=== PATIENT | female | born 1955 | race Caucasian/White ===

== ENCOUNTER 2018-10-31 08:00 | Outpatient (CLI) | payer MEDICAID, OTHER ==
[2018-10-31 19:23] LABS: CALCIUM 9.7 mg/dL (8.5-10.3); CARBON DIOXIDE - CO2 27 mmol/L (21-32); CHLORIDE 98 mmol/L (101-111); GLUCOSE 244 mg/dL (70-100); SODIUM 135 mmol/L (135-145)
[2018-10-31 19:44] LABS: ALBUMIN 4.4 g/dL (3.2-5.5); ALBUMIN/GLOBULIN RATIO 1.3 (1.0-2.2); ALKALINE PHOSPHATASE 71 IU/L (42-121); ALT ALANINE AMINOTRANSFERASE 69 IU/L (10-60); AST ASPARTATE AMINOTRANSFERASE 86 IU/L (10-42); BILIRUBIN,TOTAL 0.8 mg/dL (0.2-1.0); BUN - BLOOD UREA NITROGEN 17 mg/dL (6-20); CHOL/HDL RATIO 3.8 (<4.4); CHOLESTEROL 218 mg/dL; CREATININE 0.8 mg/dL (0.4-1.0); GFR - MDRD 72 (>89); HDL CHOLESTEROL 58 mg/dL; LDL CHOLESTEROL,CALCULATED 124 mg/dL; LDL/HDL RATIO 2.1 (<4.4); TOTAL PROTEIN 7.9 g/dL (6.7-8.2); VLDL CHOLESTEROL 36 mg/dL
[2018-10-31 19:55] LABS: BASOPHILS # (AUTO) 0.1 10^3/uL (0.0-0.1); BASOPHILS % (AUTO) 0.9 %; EOSINOPHILS # (AUTO) 0.1 10^3/uL (0.0-0.7); EOSINOPHILS % (AUTO) 1.6 %; HGB - HEMOGLOBIN 13.8 g/dL (12.0-16.0); LYMPHOCYTES # (AUTO) 1.5 10^3/uL (1.5-3.5); LYMPHOCYTES % (AUTO) 22.4 %; MEAN CORPUSCULAR HGB CONC 33.8 g/dL (32.0-36.0); MEAN CORPUSCULAR VOLUME 97.6 fL (81.0-99.0); MEAN PLATELET VOLUME 9.3 fL (7.9-10.8); MONOCYTES # (AUTO) 0.5 10^3/uL (0.0-1.0); MONOCYTES % (AUTO) 7.3 %; NEUTROPHILS # (AUTO) 4.6 10^3/uL (1.5-6.6); NEUTROPHILS % (AUTO) 67.8 %; PLT - PLATELET COUNT 150 10^3/uL (130-450); RED BLOOD COUNT 4.18 10^6/uL (4.20-5.40); RED CELL DISTRIBUTION WIDTH 13.4 % (12.0-15.0); WHITE BLOOD COUNT 6.8 x10^3/uL (4.8-10.8)
[2018-10-31 21:47] LABS: HB2 TOTAL 15.1 g/dL; HEMOGLOBIN A1C 1.18 g/dL; HEMOGLOBIN A1C % 9.3 % (4.6-6.2)
== END 2018-10-31 23:59 | disposition home or self-care (01) ==
LOC: LAB.WCP 08:00
PROVIDERS: ATTEND Physician Assistant
DX: E11.9 Type 2 diabetes mellitus without complications (principal); E78.5 Hyperlipidemia, unspecified; R53.83 Other fatigue
CPT/HCPCS: 36415; 80053; 80061; 82043; 83036; 83721; 84443; 85025

== ENCOUNTER 2018-12-13 14:58 | Outpatient (CLI) | payer MEDICAID | END 2018-12-13 14:59 | disposition home or self-care (01) | LOC: SC 14:58 | PROVIDERS: ATTEND Internal Medicine Pulmonary Disease | DX: G47.10 Hypersomnia, unspecified (principal); R06.81 Apnea, not elsewhere classified; R06.83 Snoring; G47.8 Other sleep disorders | CPT/HCPCS: 99203; 99212 ==

== ENCOUNTER 2019-01-13 20:55 | Outpatient (CLI) | payer MEDICAID | END 2019-01-13 20:56 | disposition home or self-care (01) | LOC: SC 20:55 | PROVIDERS: ATTEND Internal Medicine Pulmonary Disease | DX: G47.33 Obstructive sleep apnea (adult) (pediatric) (principal); G47.61 Periodic limb movement disorder; E66.9 Obesity, unspecified; Z68.38 Body mass index [BMI] 38.0-38.9, adult | CPT/HCPCS: 95810 ==

== ENCOUNTER 2019-01-18 12:56 | Outpatient (CLI) | payer MEDICAID | END 2019-01-18 12:57 | disposition home or self-care (01) | LOC: SC 12:56 | PROVIDERS: ATTEND Nurse Practitioner Family | DX: G47.33 Obstructive sleep apnea (adult) (pediatric) (principal); G47.61 Periodic limb movement disorder | CPT/HCPCS: 99212; 99214 ==

== ENCOUNTER 2019-02-01 09:08 | Outpatient (CLI) | payer MEDICAID ==
[2019-02-01 12:35] LABS: ALBUMIN 4.1 g/dL (3.2-5.5); ALBUMIN/GLOBULIN RATIO 1.2 (1.0-2.2); BILIRUBIN,TOTAL 0.7 mg/dL (0.2-1.0); CALCIUM 9.4 mg/dL (8.5-10.3); CREATININE 0.9 mg/dL (0.4-1.0); TOTAL PROTEIN 7.4 g/dL (6.7-8.2)
[2019-02-01 12:42] LABS: BASOPHILS % (AUTO) 0.7 %; EOSINOPHILS # (AUTO) 0.1 10^3/uL (0.0-0.7); EOSINOPHILS % (AUTO) 2.1 %; HGB - HEMOGLOBIN 12.4 g/dL (12.0-16.0); LYMPHOCYTES # (AUTO) 1.7 10^3/uL (1.5-3.5); LYMPHOCYTES % (AUTO) 24.8 %; MEAN CORPUSCULAR HEMOGLOBIN 33.1 pg (27.0-31.0); MEAN CORPUSCULAR HGB CONC 34.4 g/dL (32.0-36.0); MEAN CORPUSCULAR VOLUME 96.1 fL (81.0-99.0); MEAN PLATELET VOLUME 9.3 fL (7.9-10.8); MONOCYTES # (AUTO) 0.6 10^3/uL (0.0-1.0); MONOCYTES % (AUTO) 8.7 %; NEUTROPHILS # (AUTO) 4.3 10^3/uL (1.5-6.6); NEUTROPHILS % (AUTO) 63.7 %; PLT - PLATELET COUNT 164 10^3/uL (130-450); RED BLOOD COUNT 3.75 10^6/uL (4.20-5.40); RED CELL DISTRIBUTION WIDTH 13.3 % (12.0-15.0); WHITE BLOOD COUNT 6.7 x10^3/uL (4.8-10.8)
[2019-02-01 12:52] LABS: HEMOGLOBIN A1C 0.54 g/dL
== END 2019-02-01 09:09 | disposition home or self-care (01) ==
LOC: LAB.WCP 09:08
PROVIDERS: ATTEND Physician Assistant
DX: E11.9 Type 2 diabetes mellitus without complications (principal)
CPT/HCPCS: 36415; 80053; 83036; 85025

== ENCOUNTER 2019-04-04 13:38 | Outpatient (CLI) | payer MEDICAID ==
[2019-04-04 15:17] VITALS: BP 104/60
--- NOTE | 2019-04-04 15:17 | SLEEP CARE CONSULTATION ---
Information from patient questionnaire entered by Clarisa Agarwal. I have reviewed and concur with the information entered by Clarisa Agarwal. This document represents the service I personally performed and the decisions made by me, Aster Ness, RN, MSN, FINISHING MANAGER. History of Present Illness Previous diagnosis: Severe, Obstructive Sleep Apnea-Hypopnea Syndrome AHI: 44.0 Reason for CPAP/BiPAP follow up: first compliance Equipment obtained from: [facility] Mask style: Nasal Mask brand: Respironics (patient asked to have style changed before 30 days but it was refused as her AHI was lower.) Backup mask available: No Last cushion change: none since set up HPI additional information: Changes since last seen is stenosis and disc abnormality C6 noted on MRI and gabapentin ordered until could see referral to neurologist. She also reports that it took a while to get set up and when called [facility] she was told that it was due to delay in authorization of insurance. It was over a month before someone called back. She was set up a day after informed them she would go elsewhere for her CPAP. CPAP Compliance Data - Data Reviewed with Patient Average duration of nightly device use: 7H 39M Compliance rate %: 96.7 Current pressure setting (cmH2O): 4-15 Humidity settin Heated hose settin Average residual AHI: 14.3 Central apnea: 1.3 Obstructive apnea: 7.2 Hypopnea: 5.8 Average large leak: 52 minutes and increased the past 2 weeks with up to 50% of the last night Subjective Missed days of use due to: reports: other (fell asleep without it after long travel day.) Patient concerns: reports: air blowing in eyes (She is adjusting mask 5-6 times a night even after mask adjustment. ), mask leak noise, dry mouth, nose, throat (wakes with dry mouth most days but not dry nose or throat. ). denies: aerophagia, mask discomfort, condensation in mask/hose, nasal congestion, epistaxis Observed to snore while using device: No (sleeps alone) On therapy, patient: reports: sleeping better (she was sleeping better until waking more with mask leaks. ), awakening more refreshed (yes initially, not now. ), being more awake and alert during the day, more rested overall (not as rested or alert for past 2 weeks with increase in mask leaks noted on compliance report. ), other. denies: drowsiness while driving Initial [place] Sleepiness Scale score: 18 Current [place] Sleepiness Scale score: 15 Allergies and Home Medications Home medication list reviewed: Yes Allergy and home medication list: Added Gabapentin 300mg 3 times day started recently due to pinched nerve in neck. Medication Name (generic/name brand) Strength & Dosage Fluoxetine HCL 20mg cap one-two daily ( SAD and PTSD) Metformin HCL 1000mg tab one twice daily Januvia (Sitagliptin Phosphate) 100mg tab one daily Actos (Pioglitazone HCL) 15mg tab one daily Victoza 18mg/3ml (1.8) Injector Pen Inject 1.8mg daily Aspirin delayed release 81mg tab one daily Flaxseed Oil 1400mg cap one daily Black Cohosh 540mg cap one daily Vitamin D3 5000IU cap one daily Hawthron Harmon 565mg cap one daily Milk Thistle 1000mg cap one daily Gabapentin 300mg 3 times a day Allergy List Darvon Statins Glipizide Review of Systems Review of systems same as previous: Yes Respiratory: reports: shortness of breath, sputum production Gastrointestinal: reports: diarrhea Urinary: reports: incontinence, frequency, urgency Neurological: reports: headaches Psychiatric: reports: depression, claustrophobia Ear/Nose/Throat: reports: nasal congestion, sinus problems Endocrine: reports: sluggishness, too hot or cold, excessive thirst Musculoskeletal: reports: joint pain, neck pain, back pain, muscle pain or cramping Immunologic: reports: sneezing, rash, itching, allergies to food or environment (seasonal allergies) Physical Exam Blood Pressure: 104/60 Cuff size: long Heart Rate: 71 O2 Saturation: 98 Height: 4 ft 11.75 in Weight (kg): 89.448 kg Body Mass Index: 38.8 BMI Classification: Class 2 Impression and Plan 1. Obstructive Sleep Apnea-Hypopnea Syndrome, severe, with good treatment compliance but has elevated residual AHI . On CPAP therapy, there was improved sleep quality and she was more rested overall until increase in mask leaks. Since the mask leaks are waking her even with adjustment of mask and she is not able to get a new cushion only every 3 months, I fitted her with a medium D reamwear full face mask. Her oral dryness could be from opening mouth in sleep and this could reduce oral dryness. In addition, I will have her adjust her humidity higher to 4 and heated hose lower to 1 to allow more moisture. She is to adjust further as needed. I will also change her autoCPAP pressure to [id number] to reduce residual AHI. She is to call me if the pressure change is uncomfortable. She has also gained weight and advised how continued weight gain could increase her CPAP requirements. She is advised to lose weight. Symptoms to report for pressure adjustment discussed. Patient's apnea severity and rationale for treatment to reduce apnea, improve sleep quality and reduce cardiovascular and cerebrovascular events was reviewed. I also reviewed the benefit of consistent device use of CPAP for diabetes, depression/anxiety. Plan Change auto CPAP pressure at 10-16 cm H2O. Notify me if snoring with the mask or feeling that the pressure is too much or too little. Attempt to lose weight. Return for follow-up in 2 months, or sooner if concerns arise. I spent 100% of this 55 minute visit face to face with the patient with greater than 50% of this was spent time counseling the patient and coordination of care.
== END 2019-04-04 13:39 | disposition home or self-care (01) ==
LOC: SC 13:38
PROVIDERS: ATTEND Nurse Practitioner Family
DX: G47.33 Obstructive sleep apnea (adult) (pediatric) (principal)
CPT/HCPCS: 99212; 99215

== ENCOUNTER 2019-05-03 08:00 | Outpatient (CLI) | payer MEDICAID ==
[2019-05-03 18:54] LABS: BASOPHILS % (AUTO) 0.6 %; EOSINOPHILS # (AUTO) 0.1 10^3/uL (0.0-0.7); EOSINOPHILS % (AUTO) 1.6 %; HGB - HEMOGLOBIN 11.8 g/dL (12.0-16.0); LYMPHOCYTES # (AUTO) 1.8 10^3/uL (1.5-3.5); LYMPHOCYTES % (AUTO) 26.3 %; MEAN CORPUSCULAR HEMOGLOBIN 32.5 pg (27.0-31.0); MEAN CORPUSCULAR HGB CONC 32.8 g/dL (32.0-36.0); MEAN CORPUSCULAR VOLUME 99.2 fL (81.0-99.0); MEAN PLATELET VOLUME 10.7 fL (7.9-10.8); MONOCYTES # (AUTO) 0.6 10^3/uL (0.0-1.0); NEUTROPHILS # (AUTO) 4.3 10^3/uL (1.5-6.6); NEUTROPHILS % (AUTO) 63.1 %; PLT - PLATELET COUNT 157 10^3/uL (130-450); RED BLOOD COUNT 3.63 10^6/uL (4.20-5.40); RED CELL DISTRIBUTION WIDTH 12.9 % (12.0-15.0); WHITE BLOOD COUNT 6.9 x10^3/uL (4.8-10.8)
[2019-05-03 19:17] LABS: ALBUMIN 4.2 g/dL (3.2-5.5); ALBUMIN/GLOBULIN RATIO 1.3 (1.0-2.2); BILIRUBIN,TOTAL 0.6 mg/dL (0.2-1.0); CALCIUM 9.8 mg/dL (8.5-10.3); CREATININE 0.7 mg/dL (0.4-1.0); TOTAL PROTEIN 7.5 g/dL (6.7-8.2)
[2019-05-03 19:41] LABS: HB2 TOTAL 12.1 g/dL; HEMOGLOBIN A1C 0.54 g/dL; HEMOGLOBIN A1C % 6.2 % (4.6-6.2)
== END 2019-05-03 23:59 | disposition home or self-care (01) ==
LOC: LAB.WCP 08:00
PROVIDERS: ATTEND Physician Assistant
DX: E11.9 Type 2 diabetes mellitus without complications (principal); R74.8 Abnormal levels of other serum enzymes
CPT/HCPCS: 36415; 80053; 83036; 85025

== ENCOUNTER 2019-07-12 13:38 | Outpatient (CLI) | payer MEDICAID ==
[2019-07-12 15:08] VITALS: BP 130/60
--- NOTE | 2019-07-12 15:08 | SLEEP CARE CONSULTATION ---
Information from patient questionnaire entered by Jocelynn Mai. I have reviewed and concur with the information entered by Jocelynn Mai. This document represents the service I personally performed and the decisions made by me, Aster Ness, RN, MSN, CABLE SWAGER. History of Present Illness Previous diagnosis: Severe, Obstructive Sleep Apnea-Hypopnea Syndrome AHI: 44.0 Reason for follow up: other (2 month) Equipment type: CPAP Equipment obtained from: [facility] (having difficulty getting supplies despite repeated attempts and then is off schedule for replacement.) Mask style: Nasal (Dreamwear) Mask brand: Respironics Backup mask available: Yes Last cushion change: 2 months ago HPI additional information: The Dreamwear full face mask did not work any better. She was waking to saliva in mask. She tried mask for about 3 weeks and then returned to Dreamwear nasal mask but it is dislodging during her sleep. CPAP Compliance Data - Data Reviewed with Patient Average duration of nightly device use: 8.9 Compliance rate %: 96.7 (60 days) Current pressure setting (cmH2O): 10-16 Humidity settin Heated hose settin Average residual AHI: 6.2 Average large leak: 28 mins 49 sec Subjective Patient concerns: reports: air blowing in eyes, mask leak noise (wakes to mask dislodging 12 times a night ). denies: aerophagia, mask discomfort, condensation in mask/hose, nasal congestion, dry mouth, nose, throat, epistaxis Observed to snore while using device: No (single ) Current pressure setting perceived as: comfortable (as long as uses the ramp) On therapy, patient: reports: being more awake and alert during the day, more rested overall (but with residual fatigue). denies: sleeping better (due to mask ), awakening more refreshed Initial [place] Sleepiness Scale score: 18 Current [place] Sleepiness Scale score: 10 Allergies and Home Medications Known drug allergies: Yes (see list) Home medication list reviewed: No Allergy and home medication list: Fluoxetine HCL 20mg cap one-two daily Metformin HCL 1000mg tab one twice daily Januvia (Sitagliptin Phosphate) 100mg tab one daily Actos (Pioglitazone HCL) 15mg tab one daily Victoza 18mg/3ml (1.8) Injector Pen Inject 1.8mg daily Aspirin delayed release 81mg tab one daily Flaxseed Oil 1400mg cap one daily Black Cohosh 540mg cap one daily Vitamin D3 5000IU cap one daily Probiotic 10 (20 billion cap) Cap one daily Hawthron Harmon 565mg cap one daily Milk Thistle 1000mg cap one daily Tknsqz-Q-Gojzdntly 500mg cap one daily Allergy List Darvon Glipizide Statins Review of Systems Review of systems same as previous: No (left carpal tunnel repair ) Physical Exam Blood Pressure: 130/60 Cuff size: long Heart Rate: 79 O2 Saturation: 98 Height: 4 ft 11.5 in Weight: 201 lb 12.8 oz Body Mass Index: 40.1 BMI Classification: Obesity Class 3 Impression and Plan 1. Obstructive Sleep Apnea-Hypopnea Syndrome, severe ( very severe on her back), with good treatment compliance and better apnea control. The residual AHI reduced from 14.3 to 6.2 from pressure change. On CPAP therapy, the patient is more alert and more rested overall but has residual fatigue. Fatigue could be from frequent mask dislodging in sleep and waking her. For her mask concerns, I gave her a sample nasal pillow - medium to use with her Dreamwear nasal mask instead of the regular cushion. I also wrote a mask specific prescription for r thomas when her supplies are due to be replaced. In addition her residual AHI is better with pressure change but still slightly elevated which could contribute to fatigue as well as her other medical conditions. Thus I will change her auto CPAP to [id number]. She is to contact me if pressure change uncomfortable. Continued weight gain will increase her CPAP pressure requirements and apnea risk as well as over all health risks. Thus she is advised to lose weight. She was also advised to discuss attending the diabetic class to assist her weight loss goals and blood sugar control with her PCP. [employer] information card given for her as resource. For other supply concerns, she is advised to continue to work with [facility] as her CPAP is not yet paid for and it is best to stay with current provider for insurance coverage. If still unable to get supplies contact this office so we can see how we can help. Patient's apnea severity and rationale for treatment to reduce apnea, improve sleep quality and reduce cardiovascular and cerebrovascular events was reviewed. I also reviewed the benefit of consistent device use of CPAP for her diabetes and depression / PTSD. * * Change CPAP pressure to 12-17 cmH2O * Try nasal pillow sample * Notify me if snoring with mask or feeling that the pressure is too much or too little * Attempt to lose weight * Discuss diabetic class with PCP. * Return for follow up in 2 months , or sooner if concerns arise I spent 100% of this 45 minute visit face to face with the patient with greater than 50% of this was spent time counseling the patient and coordination of care.
== END 2019-07-12 13:39 | disposition home or self-care (01) ==
LOC: SC 13:38
PROVIDERS: ATTEND Nurse Practitioner Family
DX: G47.33 Obstructive sleep apnea (adult) (pediatric) (principal); E66.9 Obesity, unspecified; Z68.41 Body mass index [BMI] 40.0-44.9, adult
CPT/HCPCS: 99212; 99215

== ENCOUNTER 2019-10-25 08:21 | Outpatient (CLI) | payer MEDICAID ==
[2019-10-25 12:28] LABS: ALBUMIN 4.4 g/dL (3.2-5.5); ALBUMIN/GLOBULIN RATIO 1.4 (1.0-2.2); BILIRUBIN,TOTAL 0.9 mg/dL (0.2-1.0); CALCIUM 9.7 mg/dL (8.5-10.3); CREATININE 0.9 mg/dL (0.4-1.0); TOTAL PROTEIN 7.5 g/dL (6.7-8.2)
[2019-10-25 12:33] LABS: MICROALBUM/CREATININE RATIO,UR 2.9 ug/mg (<30.0); MICROALBUMIN,URINE 0.6 mg/dL (0-300.0)
[2019-10-25 12:50] LABS: HB2 TOTAL 13.2 g/dL; HEMOGLOBIN A1C 0.51 g/dL; HEMOGLOBIN A1C % 5.7 % (4.6-6.2)
== END 2019-10-25 23:59 | disposition home or self-care (01) ==
LOC: LAB.WCP 08:21
PROVIDERS: ATTEND Physician Assistant
DX: E11.9 Type 2 diabetes mellitus without complications (principal)
CPT/HCPCS: 36415; 80053; 82043; 82570; 83036

== ENCOUNTER 2019-10-25 13:53 | Outpatient (CLI) | payer MEDICAID ==
[2019-10-25 14:58] VITALS: BP 126/66
--- NOTE | 2019-10-25 14:58 | SLEEP CARE CONSULTATION ---
Information from patient questionnaire entered by Jocelynn Mai. I have reviewed and concur with the information entered by Jocelynn Mai. This document represents the service I personally performed and the decisions made by me, Aster Ness, RN, MSN, AUTOMATIC PINSETTER MECHANIC. History of Present Illness Previous diagnosis: Severe, Obstructive Sleep Apnea-Hypopnea Syndrome AHI: 44.0 Reason for follow up: other (2 month) Equipment type: CPAP Equipment obtained from: [facility] (having difficulty supplies despite repeated attempts - now no hose) Mask style: Nasal (Dreamwear) Mask brand: Respironics Backup mask available: Yes Last cushion change: a couple weeks ago HPI additional information: She tried nasal pillows for her Dreamwear mask but did not fit any better so returned to Dreamwear nasal mask. The new CPAP pressure is comfortable for elevated residual AHI. CPAP Compliance Data - Data Reviewed with Patient Average duration of nightly device use: 9.3 Compliance rate %: 95 (60 days) Current pressure setting (cmH2O): 12-17 Humidity settin Heated hose settin Average residual AHI: 5.7 Average large leak: 29 min 46 sec Subjective Patient concerns: reports: other (She has stopped humidifier use as found it increased nasal congestion. ). denies: aerophagia, mask discomfort, air blowing in eyes, mask leak noise, condensation in mask/hose, nasal congestion, dry mouth, nose, throat, epistaxis Observed to snore while using device: No Current pressure setting perceived as: comfortable On therapy, patient: reports: sleeping better, awakening more refreshed, being more awake and alert during the day, more rested overall. denies: drowsiness while driving Initial [place] Sleepiness Scale score: 18 Current [place] Sleepiness Scale score: 4 Allergies and Home Medications Known drug allergies: Yes (see list ) Home medication list reviewed: Yes (Black cohosh stopped / Actos stopped/ metformin reduced to 500mg bid) Physical Exam Blood Pressure: 126/66 Cuff size: regular Heart Rate: 82 O2 Saturation: 98 Height: 4 ft 11.5 in Weight: 190 lb 9.6 oz Weight change since last visit: lost 11 pounds Body Mass Index: 37.8 BMI Classification: Obese Impression and Plan 1. Obstructive Sleep Apnea-Hypopnea Syndrome, severe, with good treatment compliance and slightly elevated apnea control. On CPAP therapy, the patient has better sleep quality and is more rested overall. If nasal dryness, she is increase humidity setting as showed on a sample CPAP. Currently she is just putting water in reservoir for a pass over and was showed how to turn off the heated plate for less moisture as feels congested with higher humidity setting. Printed instructions given with rationale discussed why to adjust settings further or heated hose.Patient is losing weight, especially since when she started modifying diet and then started a Fit Bit in August to monitor her increase in activity. Thus I will not change her autoCPAP pressure for the slight elevation in AHI to allow for pressure reduction as she continues to lose weight. Her ultimate goal is to get down to 135 bringing her BMI down to 27. The BMI chart was reviewed. Currently patients BMI is 37.8 obesity class . She has not yet discussed the Diabetic class with her PCP and will at next follow up next week. Obesity increases the risk of apnea, CPAP pressure requirements and overall health risks especially cardiovascular and diabetes. Thus patient is advised to continue to lose weight. A diet consultation can be helpful in achieving optimal weight loss goals if unable to achieve on own. Patient encouraged to discuss their weight loss goals with their PCP and consider a referral to a contact center rep. The patient's CPAP pressure range should accommodate some weight loss. Symptoms to report for additional pressure adjustment discussed. Patient's apnea severity and rationale for treatment to reduce apnea, improve sleep quality and reduce cardiovascular and cerebrovascular events was reviewed. I also reviewed the benefit of consistent device use of CPAP for diabetes. Since patient has more severe apnea in supine position, patient advised to avoid supine sleep with pillow positioning if unable to use CPAP while ill or if without electricity to reduce apnea risk and to raise head of bed 30-40 degrees to decrease some apnea risk. * Continue CPAP pressure at [id number] * Discuss diabetic or contact center rep referral with PCP. * Notify me if snoring with mask or feeling that the pressure is too much or too little * Continue to lose weight * Adjust humidity * Call this office if any problems using CPAP * Return for follow up in 6 months , or sooner if concerns arise Time Spent with Patient (minutes): 40 I spent 100% of this visit face to face with the patient with greater than 50% of this was spent time counseling the patient and coordination of care.
== END 2019-10-25 13:54 | disposition home or self-care (01) ==
LOC: SC 13:53
PROVIDERS: ATTEND Nurse Practitioner Family
DX: G47.33 Obstructive sleep apnea (adult) (pediatric) (principal); E66.9 Obesity, unspecified; Z68.37 Body mass index [BMI] 37.0-37.9, adult
CPT/HCPCS: 99212; 99215

== ENCOUNTER 2020-01-16 08:00 | Outpatient (CLI) | payer MEDICAID ==
[2020-01-16 14:04] LABS: CHOL/HDL RATIO 4.3 (<4.4); CHOLESTEROL 186 mg/dL; HDL CHOLESTEROL 43 mg/dL; LDL CHOLESTEROL,CALCULATED 117 mg/dL; LDL/HDL RATIO 2.7 (<4.4); VLDL CHOLESTEROL 26 mg/dL
[2020-01-16 14:19] LABS: HB2 TOTAL 12.6 g/dL; HEMOGLOBIN A1C 0.44 g/dL; HEMOGLOBIN A1C % 5.3 % (4.6-6.2)
== END 2020-01-16 23:59 | disposition home or self-care (01) ==
LOC: LAB.WCP 08:00
PROVIDERS: ATTEND Physician Assistant
DX: E78.5 Hyperlipidemia, unspecified (principal); E11.9 Type 2 diabetes mellitus without complications
CPT/HCPCS: 36415; 80061; 83036; 83721

== ENCOUNTER → 2020-03-22 | Outpatient (CLI) | payer MEDICAID ==
--- NOTE | 2020-03-22 09:50 | XRAY Report ---
Reason: BILATERAL HAND PAIN Procedure Date: 03/22/2020 Accession Number: [id number] / [id number] Procedure: WCP - Hand 3 View BILAT CPT Code: Final Report FULL RESULT: PROCEDURE: Hand 3 View BILAT INDICATIONS: BILATERAL HAND PAIN TECHNIQUE: 3 views of the both hand acquired. COMPARISON: No previous study is available for comparison. FINDINGS: Bones: No acute fracture or dislocation. No suspicious bony lesion or osseous erosion is seen. Mild joint space narrowing and marginal osteophyte formation is seen in the distal interphalangeal joints bilaterally. Minimal degenerative changes are seen at the left first carpometacarpal joint. Soft tissues: No suspicious soft tissue calcifications. IMPRESSION: No acute osseous abnormality. No focal erosion is seen. 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 Reviewed by: Brian Pérez MD on 03/22/2020 9:49 AM PDT Approved by: Brian Pérez MD on 03/22/2020 9:49 AM PDT Station ID: [id number]
== END ==
LOC: DI.WCP 07:33
PROVIDERS: ATTEND Family Medicine
DX: M18.0 Bilateral primary osteoarthritis of first carpometacarpal joints (principal); M19.042 Primary osteoarthritis, left hand; M19.041 Primary osteoarthritis, right hand

== ENCOUNTER 2020-05-16 07:46 | Outpatient (CLI) | payer MEDICAID ==
[2020-05-16 12:57] LABS: HEMOGLOBIN A1c% 5.9 % (4.27-6.07)
== END 2020-05-16 23:59 | disposition home or self-care (01) ==
LOC: LAB.WCP 07:46
PROVIDERS: ATTEND Physician Assistant
DX: E11.9 Type 2 diabetes mellitus without complications (principal)
CPT/HCPCS: 36415; 83036

== ENCOUNTER 2020-05-20 13:06 | Outpatient (CLI) | payer MEDICAID ==
--- NOTE | 2020-05-20 14:09 | SLEEP CARE CONSULTATION ---
Information from patient questionnaire entered by Jocelynn Mai. I have reviewed and concur with the information entered by Jocelynn Mai. This document represents the service I personally performed and the decisions made by me, Aster Ness, RN, MSN, ARCHIVAL STUDIES PROFESSOR. History of Present Illness Service Date and Time: 05/20/2020 1306 Previous diagnosis: Severe, Obstructive Sleep Apnea-Hypopnea Syndrome AHI: 44.0 (in 2019) Reason for follow up: other (7 month, issues with pressure) Equipment type: CPAP Equipment obtained from: [facility] Mask style: Nasal Mask brand: Respironics Backup mask available: Yes (old mask) Last cushion change: 2 months ago Prior sleep studies: Yes Year and Where: 2019 - Merged with [facility] Type of Sleep Study: Polysomnography HPI additional information: Patient had lost 18 pounds until recent injury to right achilles tendon. Her non weight bearing status and decreased activity caused regain of 5 pounds. She had also stopped all diabetic medications except Victoza. But then had to restart metformin bid after weight gain and increase of blood sugars. She stopped her generic Prozac as well but had to restart after injury that she feels was due to lack of activity. CPAP Compliance Data - Data Reviewed with Patient Average duration of nightly device use: 7.9 Compliance rate %: 98.3 (180 days) Current pressure setting (cmH2O): 12-17 Humidity settin Heated hose settin Average residual AHI: 3.5 (mean pressure 12.9cmH20) Average large leak: 12 min 17 sec On Oxygen: No ( / 90% pressure 14.5 ) Subjective Missed days of use due to: reports: travel Patient concerns: reports: mask leak noise (holds mask in place to control leaks. ), other (she is not using humidity or heated hose despite settings noted on data ). denies: aerophagia, condensation in mask/hose, nasal congestion, dry mouth, nose, throat, epistaxis Observed to snore while using device: No Current pressure setting perceived as: too high (at times) On therapy, patient: reports: sleeping better, awakening more refreshed, being more awake and alert during the day, more rested overall. denies: drowsiness while driving Initial [place] Sleepiness Scale score: 18 (in 2019) Current [place] Sleepiness Scale score: 8 Allergies and Home Medications Known drug allergies: Yes Home medication list reviewed: No (changes noted in HPI ) Review of Systems Review of systems same as previous: No (torn achilles tendon) Physical Exam Blood Pressure: 128/60 Cuff size: long Heart Rate: 87 O2 Saturation: 98 Height: 4 ft 11 in Weight: 177 lb 3.2 oz (after minus of 6 pound foot boot) Weight change since last visit: lost 13 pounds Body Mass Index: 35.8 BMI Classification: Obese Impression and Plan 1. Obstructive Sleep Apnea-Hypopnea Syndrome, severe , with good treatment compliance and good apnea control. On CPAP therapy, the patient has better sleep quality and is more rested overall. The higher pressure range reduced residual AHI form 5.7 to 3.5. However, she was waking intermittently to pressure feeling too high that resolved with weight gain. She will contact me when she starts losing weight again to adjust CPAP range lower. Symptoms to report for pressure change discussed. I advised her how to turn off the heated hose and humidity settings with sample device as she is not using these. To reduce her needing to hold her mask in place to reduce mask leaks, she is to change her mask cushion more frequently. Patient's apnea severity and rationale for treatment to reduce apnea, improve sleep quality and reduce cardiovascular and cerebrovascular events was reviewed. I reviewed her sleep study again and informed her of her significant apnea supine of 70 and severe in other positions. Thus she was counseled to bring her CPAP with her with all travel to reduce apnea risk and improve restfulness for her travel. I also reviewed the benefit of consistent device use of CPAP for diabetes. Because patient has significant apnea in all positions of sleep, if unable to use CPAP due to illness of lack of electricity, patient advised to raise head of bed 30-40 degrees to decrease some apnea risk. Recently we have been informed that her DME [facility] is no longer dispensing CPAP supplies. Patient tried to call then during visit but obtained voicemail. For patient supply concerns. Patient was notified that another DME can be used. I will have my applications coordinator inform of DME options. A [facility] prescription will then be made. Patient advised to contact this office if further supply problems. * Continue auto CPAP pressure at 12-17 cmH2O * Implement methods to reduce mask leaks * Transfer to new DME. * Notify me if snoring with mask or feeling that the pressure is too much or too little * Continue to lose weight * Call this office if any problems using CPAP * Return for follow up in 1 year , or sooner if concerns arise Visit Type: In Office Time Spent with Patient (minutes): 37 Provider Statement: I spent 100% of the Face to Face Visit with the patient with greater than 50% spent counseling the patient and coordination of care.
[2020-05-20 14:10] VITALS: BP 128/60
== END 2020-05-20 13:07 | disposition home or self-care (01) ==
LOC: SC 13:06
PROVIDERS: ATTEND Nurse Practitioner Family
DX: G47.33 Obstructive sleep apnea (adult) (pediatric) (principal); E66.9 Obesity, unspecified; Z68.35 Body mass index [BMI] 35.0-35.9, adult
CPT/HCPCS: 99212; 99214

== ENCOUNTER 2020-05-22 08:34 | Outpatient (CLI) | payer MEDICAID ==
[2020-05-22 12:23] LABS: ALBUMIN 4.1 g/dL (3.2-5.5); ALBUMIN/GLOBULIN RATIO 1.1 (1.0-2.2); BILIRUBIN,TOTAL 0.8 mg/dL (0.2-1.0); CALCIUM 9.5 mg/dL (8.5-10.3); CREATININE 0.7 mg/dL (0.4-1.0); TOTAL PROTEIN 7.7 g/dL (6.7-8.2)
== END 2020-05-22 23:59 | disposition home or self-care (01) ==
LOC: LAB.WCP 08:34
PROVIDERS: ATTEND Physician Assistant
DX: R20.2 Paresthesia of skin (principal)
CPT/HCPCS: 36415; 80053; 82607; 83970

== ENCOUNTER 2020-08-21 08:00 | Outpatient (CLI) | payer MEDICAID ==
[2020-08-21 14:58] LABS: HEMOGLOBIN A1c% 5.3 % (4.27-6.07)
== END 2020-08-21 23:59 | disposition home or self-care (01) ==
LOC: LAB.WCP 08:00
PROVIDERS: ATTEND Physician Assistant
DX: E11.9 Type 2 diabetes mellitus without complications (principal)
CPT/HCPCS: 36415; 83036

== ENCOUNTER 2020-11-27 08:00 | Outpatient (CLI) | payer MEDICARE, MEDICAID ==
[2020-11-27 12:36] LABS: ESTIMATED AVERAGE GLUCOSE 128 mg/dL (70-100); HEMOGLOBIN A1c% 6.1 % (4.27-6.07)
[2020-11-27 12:52] LABS: CREATININE,URINE 80.3 mg/dL; MICROALBUMIN,URINE 0.4 mg/dL (0-300.0)
[2020-11-27 12:53] LABS: ALBUMIN 4.1 g/dL (3.2-5.5); ALBUMIN/GLOBULIN RATIO 1.3 (1.0-2.2); ALKALINE PHOSPHATASE 63 IU/L (42-121); ALT ALANINE AMINOTRANSFERASE 21 IU/L (10-60); AST ASPARTATE AMINOTRANSFERASE 22 IU/L (10-42); BILIRUBIN,TOTAL 0.8 mg/dL (0.2-1.0); BUN - BLOOD UREA NITROGEN 15 mg/dL (6-20); CALCIUM 9.5 mg/dL (8.5-10.3); CARBON DIOXIDE - CO2 27 mmol/L (21-32); CHLORIDE 101 mmol/L (101-111); CHOLESTEROL 212 mg/dL; CREATININE 0.8 mg/dL (0.4-1.0); GFR - MDRD 72 (>89); GLUCOSE 180 mg/dL (70-100); HDL CHOLESTEROL 53 mg/dL; LDL CHOLESTEROL,CALCULATED 125 mg/dL; LDL/HDL RATIO 2.4 (<4.4); POTASSIUM 4.3 mmol/L (3.5-5.0); SODIUM 135 mmol/L (135-145); TOTAL PROTEIN 7.2 g/dL (6.7-8.2); TRIGLYCERIDES 170 mg/dL; VLDL CHOLESTEROL 34 mg/dL
== END 2020-11-27 23:59 | disposition home or self-care (01) ==
LOC: LAB.WCP 08:00
PROVIDERS: ATTEND Physician Assistant Medical
DX: E11.9 Type 2 diabetes mellitus without complications (principal)
CPT/HCPCS: 36415; 80053; 80061; 82043; 82570; 83036; 83721

== ENCOUNTER 2021-02-10 14:08 | Outpatient (CLI) | payer MEDICARE ==
--- NOTE | 2021-02-11 07:56 | Mammography Report ---
BILATERAL DIGITAL SCREENING MAMMOGRAM 3D/2D: 02/10/2021 CLINICAL: Baseline exam. Routine screening. Can't remember where or when she had her last mammogram. 15 - 20 years ago. New baseline. No prior exams were available for comparison. There are scattered fibroglandular eleme nts in both breasts. No significant masses, calcifications, or other findings are seen in either breast. Right breast richa gn oil cysts. IMPRESSION: NEGATIVE There is no mammographic evidence of malignancy. A 1 year screening mammogram is recommended. This exam was interpreted at Station ID: [id number]. NOTE: For mammograms, a report in lay terms will be sent to the patient. Approximately 15% of breast malignancies will not be visualized mammographically. In the management of a palpable breast mass, a negative mammogram must not discourage biopsy of a clinically suspicious lesion. Electronically Signed By: Francois Armendariz M.D. slc/:02/10/2021 17:02:33 ACR BI-RADS Category 1: Negative 3341F PARENCHYMAL PATTERN: (A) - The breast(s) demonstrate(s) scattered fibroglandular densities. BI-RADS CATEGORY: (1) - 1 RECOMMENDATION: (ANNUAL) - Recommend routine annual screening mammography. [id number] 1 year screening LATERALITY: (B)
== END 2021-02-10 14:09 | disposition home or self-care (01) ==
LOC: DI 14:08
DX: Z12.31 Encounter for screening mammogram for malignant neoplasm of breast (principal)

== ENCOUNTER 2021-02-21 08:00 | Outpatient (CLI) | payer MEDICARE ==
[2021-02-21 11:50] LABS: CALCIUM 9.6 mg/dL (8.5-10.3); CREATININE 0.9 mg/dL (0.4-1.0); POTASSIUM 4.4 mmol/L (3.5-5.0)
[2021-02-21 12:15] LABS: ESTIMATED AVERAGE GLUCOSE 126 mg/dL (70-100)
== END 2021-02-21 23:59 | disposition home or self-care (01) ==
LOC: LAB.WCP 08:00
PROVIDERS: ATTEND Physician Assistant Medical
DX: E11.9 Type 2 diabetes mellitus without complications (principal)
CPT/HCPCS: 36415; 80048; 83036

== ENCOUNTER 2021-02-28 06:24 | Day surgery (SDC) | payer MEDICARE ==
[2021-02-28] MEDS ORDERED: LACTATED RINGERS 1,000 ML IV ONE (06:31)
[2021-02-28] MEDS ORDERED: MIDAZOLAM 2 MG/2 ML VIAL ONE ×2 (07:18→07:39)
[2021-02-28] MEDS ORDERED: fentaNYL 250 MCG/5 ML VIAL ONE (07:19)
[2021-02-28] MEDS ORDERED: LACTATED RINGERS 550 ML IV ONE (08:08)
[2021-02-28 08:43] VITALS: BP 124/64
== END 2021-02-28 06:25 | disposition home or self-care (01) ==
LOC: SDS 06:24
PROVIDERS: ATTEND Surgery
PROC: 0DBL8ZZ Excision of Transverse Colon, Via Natural or Artificial Opening Endoscopic (ICD-10-PCS; 2021-02-28)
PROC: 0DBL8ZZ Excision of Transverse Colon, Via Natural or Artificial Opening Endoscopic (ICD-10-PCS; 2021-02-28)
PROC: 0DBH8ZZ Excision of Cecum, Via Natural or Artificial Opening Endoscopic (ICD-10-PCS; principal; 2021-02-28 07:30)
DX: Z12.11 Encounter for screening for malignant neoplasm of colon (principal); D12.0 Benign neoplasm of cecum; D12.3 Benign neoplasm of transverse colon; Z80.0 Family history of malignant neoplasm of digestive organs; Z87.891 Personal history of nicotine dependence
CPT/HCPCS: 45380; 45385; J3010; J7120

== ENCOUNTER 2021-05-06 13:38 | Outpatient (CLI) | payer MEDICARE ==
--- NOTE | 2021-05-06 14:17 | SLEEP CARE CONSULTATION ---
Information from patient questionnaire entered by Jocelynn Mai. I have reviewed and concur with the information entered by Jocelynn Mai. This document represents the service I personally performed and the decisions made by , Marixa Srivastava ARNP. History of Present Illness Service Date and Time: 05/06/2021 1338 Previous diagnosis: Severe, Obstructive Sleep Apnea-Hypopnea Syndrome AHI: 44.0 (in 2019) Reason for follow up: annual (last seen 04/2020) Equipment type: CPAP [facility]getting [facility] needed) Mask style: Nasal Backup mask available: Yes (old mask) Last cushion change: 1 month ago Prior sleep studies: Yes Year and Where: 2019 - [facility] Sleep HPI additional information: JOSE MANUEL VASQUEZ was diagnosed to have severe, AHI 44.0, obstructive sleep apnea- hypopnea syndrome and returned today for CPAP therapy annual follow-up. CPAP Compliance Data - Data Reviewed with Patient Average duration of nightly device use: 8 hr 30 min Compliance rate %: 99.4 (180 days) Current pressure setting (cmH2O): 12-17 Humidity settin Heated hose settin Average residual AHI: 2.0 Average large leak: 1 min 14 sec Subjective Patient concerns: denies: aerophagia, mask discomfort, air blowing in eyes, mask leak noise, condensation in mask/hose, nasal congestion, dry mouth, nose, throat, epistaxis, other Observed to snore while using device: No Current pressure setting perceived as: comfortable On therapy, patient: reports: sleeping better, awakening more refreshed, being more awake and alert during the day, more rested overall. denies: drowsiness while driving Initial [place] Sleepiness Scale score: 18 (in 2019) Current [place] Sleepiness Scale score: 4 Allergies and Home Medications Home medication list reviewed: Yes (metformin 500 mg BID, furosemide) Review of Systems Review of systems same as previous: No (Ruptured achilles) Physical Exam Heart Rate: 70 O2 Saturation: 98 Height: 4 ft 11 in Weight: 190 lb Weight change since last visit: 13 pound gain Body Mass Index: 38.3 BMI Classification: Obese Impression and Plan 1. Obstructive Sleep Apnea-Hypopnea Syndrome, severe, with excellent treatment compliance and good apnea control. On CPAP therapy, the patient has better sleep quality and is more rested overall. Patient is very satisfied with her current CPAP therapy and pressures are comfortable. I informed the patient that [employer] has a recall on several devices like the patients machine. Patient was encouraged to register their device online with [employer] for the recall to see if their device is affected. If their device is affected they should start a claim. Patient denies any black particles seen in machine or hoses, any unusual odors coming from device. Patient has not experienced any physical symptoms such as upper airway irritation, headache, skin or eye irritation, asthma, nausea/vomiting, difficulty breathing or chest pain. Patient informed that they may use an inline CPAP filter that they can obtain online to reduce chance of any particles being inhaled or ingested. We discussed thoroughly the health risks of not using the CPAP versus continuing use with the filter in place. If patient is not able to sleep due to waking up choking, gasping for air or other respiratory distress that they may decide to continue using it until it is either replaced or repaired. Patient plans on continuing use of her current CPAP and inline filter. Patient voiced understanding and agreement with plan. Patient's apnea severity and rationale for treatment to reduce apnea, improve sleep quality and reduce cardiovascular and cerebrovascular events was reviewed. I also reviewed the benefit of consistent device use of CPAP for diabetes, depression and anxiety. Patient was encouraged to lose weight for their overall health and to reduce apneas. * Continue auto CPAP pressure at 12-17 cmH2O * Patient to register her device for [employer] recall * Notify me if snoring with mask or feeling that the pressure is too much or too little * Attempt to lose weight * Call this office if any problems using CPAP * Return for follow up in 1 year, or sooner if concerns arise Counseling Topics: Spare mask, Weight loss health impact Visit Type: In Office Time Spent with Patient (minutes): 20 Provider Statement: I spent 100% of the Face to Face Visit with the patient with greater than 50% spent counseling the patient and coordination of care.
== END 2021-05-06 13:39 | disposition home or self-care (01) ==
LOC: SC 13:38
PROVIDERS: ATTEND Nurse Practitioner Family
DX: G47.33 Obstructive sleep apnea (adult) (pediatric) (principal); E66.9 Obesity, unspecified; Z68.38 Body mass index [BMI] 38.0-38.9, adult
CPT/HCPCS: 99213; G0463; 99212

== ENCOUNTER 2021-08-15 07:53 | Outpatient (CLI) | payer MEDICARE ==
[2021-08-15 12:49] LABS: ALBUMIN/GLOBULIN RATIO 1.2 (1.0-2.2); ALKALINE PHOSPHATASE 58 IU/L (42-121); ALT ALANINE AMINOTRANSFERASE 31 IU/L (10-60); AST ASPARTATE AMINOTRANSFERASE 26 IU/L (10-42); BILIRUBIN,TOTAL 0.6 mg/dL (0.2-1.0); BUN - BLOOD UREA NITROGEN 27 mg/dL (6-20); CALCIUM 9.1 mg/dL (8.5-10.3); CARBON DIOXIDE - CO2 25 mmol/L (21-32); CHLORIDE 99 mmol/L (101-111); CHOL/HDL RATIO 3.8 (<4.4); CHOLESTEROL 215 mg/dL; CREATININE 0.9 mg/dL (0.4-1.0); GFR - MDRD 63 (>89); GLUCOSE 210 mg/dL (70-100); HDL CHOLESTEROL 57 mg/dL; LDL CHOLESTEROL,CALCULATED 108 mg/dL; LDL/HDL RATIO 1.9 (<4.4); POTASSIUM 4.3 mmol/L (3.5-5.0); SODIUM 134 mmol/L (135-145); TOTAL PROTEIN 7.4 g/dL (6.7-8.2); TRIGLYCERIDES 248 mg/dL; VLDL CHOLESTEROL 50 mg/dL
[2021-08-15 12:52] LABS: ESTIMATED AVERAGE GLUCOSE 128 mg/dL (70-100); HEMOGLOBIN A1c% 6.1 % (4.27-6.07)
[2021-08-15 12:53] LABS: CREATININE,URINE 213.2 mg/dL; MICROALBUM/CREATININE RATIO,UR 5.2 ug/mg (<30.0); MICROALBUMIN,URINE 1.1 mg/dL (0-300.0)
[2021-08-15 12:58] LABS: THYROID STIMULATING HORMONE 1.38 uIU/mL (0.34-5.60)
== END 2021-08-15 23:59 | disposition home or self-care (01) ==
LOC: LAB.WCP 07:53
PROVIDERS: ATTEND Physician Assistant Medical
DX: E11.9 Type 2 diabetes mellitus without complications (principal)
CPT/HCPCS: 36415; 80053; 80061; 82043; 82570; 83036; 83721; 84443

== ENCOUNTER 2022-01-10 11:43 | Outpatient (CLI) | payer MEDICARE ==
--- NOTE | 2022-01-10 12:04 | XRAY Report ---
PROCEDURE: Chest 2 View X-Ray INDICATIONS: ACUTE COVID-19 TECHNIQUE: 2 view(s) of the chest. COMPARISON: None. FINDINGS: Surgical changes and devices: None. Lungs and pleura: No pleural effusions or pneumothorax. Lungs are clear. Mediastinum: Mediastinal contours are normal. Heart size is normal. Bones and chest wall: No suspicious bony abnormalities. Soft tissues appear unremarkable. IMPRESSION: No acute process. Reviewed by: Gurinder Smallwood MD on 01/10/2022 12:03 PM PDT Approved by: Gurinder Smallwood MD on 01/10/2022 12:03 PM PDT Station ID: [id number]
== END 2022-01-10 23:59 | disposition home or self-care (01) ==
LOC: DI.N 11:43
PROVIDERS: ATTEND Nurse Practitioner
DX: U07.1 COVID-19 (principal)

== ENCOUNTER 2022-02-17 07:10 | Outpatient (CLI) | payer MEDICARE ==
[2022-02-17 12:29] LABS: ESTIMATED AVERAGE GLUCOSE 192 mg/dL (70-100); HEMOGLOBIN A1c% 8.3 % (4.27-6.07)
[2022-02-17 12:42] LABS: ALBUMIN/GLOBULIN RATIO 1.1 (1.0-2.2); ALKALINE PHOSPHATASE 60 IU/L (42-121); ALT ALANINE AMINOTRANSFERASE 49 IU/L (10-60); AST ASPARTATE AMINOTRANSFERASE 43 IU/L (10-42); BILIRUBIN,TOTAL 0.8 mg/dL (0.2-1.0); BUN - BLOOD UREA NITROGEN 17 mg/dL (6-20); CALCIUM 9.3 mg/dL (8.5-10.3); CARBON DIOXIDE - CO2 30 mmol/L (21-32); CHLORIDE 98 mmol/L (101-111); CHOL/HDL RATIO 3.5 (<4.4); CHOLESTEROL 191 mg/dL; CREATININE 0.8 mg/dL (0.4-1.0); GFR - MDRD 72 (>89); GLUCOSE 259 mg/dL (70-100); HDL CHOLESTEROL 54 mg/dL; LDL CHOLESTEROL,CALCULATED 119 mg/dL; LDL/HDL RATIO 2.2 (<4.4); POTASSIUM 4.8 mmol/L (3.5-5.0); SODIUM 135 mmol/L (135-145); TOTAL PROTEIN 7.7 g/dL (6.7-8.2); TRIGLYCERIDES 91 mg/dL; VLDL CHOLESTEROL 18 mg/dL
== END 2022-02-17 07:11 | disposition home or self-care (01) ==
LOC: LAB.N 07:10
PROVIDERS: ATTEND Physician Assistant Medical
DX: E11.9 Type 2 diabetes mellitus without complications (principal)
CPT/HCPCS: 36415; 80053; 80061; 83036; 83721

== ENCOUNTER 2022-06-01 08:10 | Outpatient (CLI) | payer MEDICARE ==
[2022-06-01 12:47] LABS: ESTIMATED AVERAGE GLUCOSE 151 mg/dL (70-100); HEMOGLOBIN A1c% 6.9 % (4.27-6.07)
[2022-06-01 13:03] LABS: ALBUMIN 4.1 g/dL (3.2-5.5); ALBUMIN/GLOBULIN RATIO 1.3 (1.0-2.2); ALKALINE PHOSPHATASE 52 IU/L (42-121); ALT ALANINE AMINOTRANSFERASE 35 IU/L (10-60); AST ASPARTATE AMINOTRANSFERASE 42 IU/L (10-42); BILIRUBIN,TOTAL 0.7 mg/dL (0.2-1.0); BUN - BLOOD UREA NITROGEN 16 mg/dL (6-20); CALCIUM 9.5 mg/dL (8.5-10.3); CARBON DIOXIDE - CO2 27 mmol/L (21-32); CHLORIDE 103 mmol/L (101-111); CHOL/HDL RATIO 3.7 (<4.4); CHOLESTEROL 180 mg/dL; CREATININE 0.9 mg/dL (0.4-1.0); GFR - MDRD 63 (>89); GLUCOSE 180 mg/dL (70-100); HDL CHOLESTEROL 49 mg/dL; LDL CHOLESTEROL,CALCULATED 109 mg/dL; LDL/HDL RATIO 2.2 (<4.4); POTASSIUM 4.6 mmol/L (3.5-5.0); SODIUM 137 mmol/L (135-145); TOTAL PROTEIN 7.3 g/dL (6.7-8.2); TRIGLYCERIDES 112 mg/dL; VLDL CHOLESTEROL 22 mg/dL
== END 2022-06-01 08:11 | disposition home or self-care (01) ==
LOC: LAB.N 08:10
PROVIDERS: ATTEND Physician Assistant Medical
DX: E11.9 Type 2 diabetes mellitus without complications (principal)
CPT/HCPCS: 36415; 80053; 80061; 83036; 83721

== ENCOUNTER 2022-06-16 06:54 | Outpatient (CLI) | payer MEDICARE ==
--- NOTE | 2022-06-16 13:01 | Ultrasound Report ---
PROCEDURE: Aorta Screening INDICATIONS: FORMER SMOKER TECHNIQUE: Real time scanning was performed of the aorta and iliac arteries, with image documentatio n. COMPARISON: None. FINDINGS: Proximal abdominal aorta measures 1.9 x 1.9 cm. Mid abdominal aorta measures 1.4 x 1.4 cm. A distal a bdominal aorta measures 1.5 x 1.6 cm. Atherosclerotic plaque noted throughout the aorta. Bilateral common iliac arteries measure 1 cm in diameter. Plaque noted in both proximal common iliac arteries. IMPRESSION: Aortic and bilateral common iliac artery atherosclerotic disease without ectasia or aneurysm. Reviewed by: Jerel Carias MD on 06/16/2022 1:00 PM PDT Approved by: Jerel Carias MD on 06/16/2022 1:00 PM PDT Station ID: [id number]
--- NOTE | 2022-06-16 15:17 | CT Report ---
PROCEDURE: Low Dose Lung Cancer Screen INDICATIONS: FORMER SMOKER TECHNIQUE: Noncontrast low-dose axial images were acquired from the pulmonary apices to the posterior costophren ic angles. Multiplanar MIP reformats were then reconstructed. For radiation dose reduction, the follo wing was used: automated exposure control, adjustment of mA and/or kV according to patient size. COMPARISON: None. FINDINGS: Image quality: Excellent. Lungs and pleura: No suspicious pulmonary nodule or mass. No acute airspace opacity otherwise. No si gnificant pleural abnormality. Mediastinum: Heart size is normal. No pericardial effusion. No mediastinal adenopathy by size crit eria. Thoracic aorta and central pulmonary arteries are normal in size. Esophagus is normal in bridger gwendolyn. No hiatal hernia. Bones and chest wall: No suspicious bony lesions. No vertebral body compression fractures. No axil angelina or supraclavicular adenopathy by size criteria. The thyroid is normal in size and there are no incidental findings. Abdomen: No acute finding in the partially included upper abdomen. IMPRESSION: 1. No suspicious pulmonary nodule or mass. 2. Lung-RADS Category: 1. 3. Recommendation: Continued annual screening CT of the chest. Reviewed by: Jerel Carias MD on 06/16/2022 3:15 PM PDT Approved by: Jerel Carias MD on 06/16/2022 3:15 PM PDT Station ID: [id number]
== END 2022-06-16 06:55 | disposition home or self-care (01) ==
LOC: DI 06:54
PROVIDERS: ATTEND Physician Assistant Medical
DX: Z12.2 Encounter for screening for malignant neoplasm of respiratory organs (principal); Z13.6 Encounter for screening for cardiovascular disorders; I70.0 Atherosclerosis of aorta; I70.8 Atherosclerosis of other arteries; F17.201 Nicotine dependence, unspecified, in remission

== ENCOUNTER 2022-06-22 15:09 | Outpatient (CLI) | payer MEDICARE ==
--- NOTE | 2022-06-24 09:32 | Mammography Report ---
BILATERAL DIGITAL SCREENING MAMMOGRAM 3D/2D: 06/22/2022 CLINICAL: Routine screening. Comparison is made to exam dated: 02/10/2021 mammogram - [facility]. There are scattered areas of fibroglandular density in both breasts (category b / 25%-50% glandular t issue). No significant masses, calcifications, or other findings are seen in either breast. There has been no significant interval change. IMPRESSION: NEGATIVE There is no mammographic evidence of malignancy. A 1 year screening mammogram is recommended. Based on the Tyrer Cuzick model (a risk assessment model) the patients lifetime risk is 7.9% and her 10 year risk is 4.0%. According to the ACR, ACS, and NCCN guidelines, an annual breast MRI exam alannah g with mammogram is recommended if the patients lifetime risk is 20% or greater. This exam was interpreted at Station ID: [id number]. NOTE: For mammograms, a report in lay terms will be sent to the patient. Approximately 15% of breast malignancies will not be visualized mammographically. In the management of a palpable breast mass, a negative mammogram must not discourage biopsy of a clinically suspicious lesion. Electronically Signed By: Francois Armendariz M.D. slc/penrad:06/22/2022 17:03:25 ACR BI-RADS Category 1: Negative 3341F PARENCHYMAL PATTERN: (A) - The breast(s) demonstrate(s) scattered fibroglandular densities. BI-RADS CATEGORY: (1) - 1 RECOMMENDATION: (ANNUAL) - Recommend routine annual screening mammography. [id number] 1 year screening LATERALITY: (B)
== END 2022-06-22 15:10 | disposition home or self-care (01) ==
LOC: DI.N 15:09
DX: Z12.31 Encounter for screening mammogram for malignant neoplasm of breast (principal)

== ENCOUNTER 2022-07-02 14:39 | Outpatient (CLI) | payer MEDICARE ==
[2022-07-02 15:15] VITALS: BP 130/70
--- NOTE | 2022-07-02 15:15 | SLEEP CARE CONSULTATION ---
Information from patient questionnaire entered by Melody Silva. I have reviewed and concur with the information entered by Melody Silva. This document represents the service I personally performed and the decisions made by me, Marixa Srivastava ARNP. History of Present Illness Service Date and Time: 07/02/2022 1439 Previous diagnosis: Severe, Obstructive Sleep Apnea-Hypopnea Syndrome AHI: 44.0 (in 2019) Reason for follow up: annual (LAST SEEN 04/2021) Equipment type: CPAP ([facility]) Equipment obtained from: [employer] (getting supplies as needed) Mask style: Nasal Backup mask available: Yes (old mask) [facility]: Yes [facility]PI additional information: JOSE MANUEL VASQUEZ was diagnosed to have severe, AHI 44.0, obstructive sleep apnea- hypopnea syndrome and returned today for CPAP therapy annual follow-up. Sleep Study - Results Prior sleep studies: Yes Year and Where: 2019 - [facility] Sleep CPAP Compliance Data - Data Reviewed with Patient Average duration of nightly device use: 8 HRS, 3 MIN, 7SEC Compliance rate %: 83.9 (12/29/2021-06/26/2022; 154/180 days used) Current pressure setting (cmH2O): 12-17 Average residual AHI: 3.9 Central apnea: 0.5 Obstructive apnea: 1.6 Subjective Missed days of use due to: reports: other (recall) Patient concerns: denies: aerophagia, mask discomfort, air blowing in eyes, mask leak noise, condensation in mask/hose, nasal congestion, dry mouth, nose, throat, epistaxis Observed to snore while using device: No Current pressure setting perceived as: comfortable On therapy, patient: reports: sleeping better, awakening more refreshed, being more awake and alert during the day, more rested overall. denies: drowsiness while driving Initial [place] Sleepiness Scale score: 18 (in 2019) Current [place] Sleepiness Scale score: 9 (07/02/2022) Allergies and Home Medications Drug allergies reviewed: Yes (as listed) Home medication list reviewed: Yes (no changes) Allergy and home medication list: Allergies gabapentin Allergy (Verified 02/28/21 08:33) Hallucinations glipizide Allergy (Verified 02/28/21 08:33) Unknown propoxyphene [From Darvon] Allergy (Verified 02/28/21 08:33) Unknown Jbjxjjw-LPP-WfD Reductase Inhibitor [Zuvszzx-Eyu-Ckd Reductase Inhibitor] Allergy (Verified 02/28/21 08:33) Unknown Review of Systems Review of systems same as previous: No (Gallbladder surgery February 2022) Physical Exam Vital signs obtained and entered by: MELODY Jeronimo MA Blood Pressure: 130/70 (left arm) Cuff size: regular Heart Rate: 64 O2 Saturation: 94 Height: 4 ft 11 in Weight: 186 lb 9.6 oz Body Mass Index: 37.7 BMI Classification: Obese Impression and Plan 1. Obstructive Sleep Apnea-Hypopnea Syndrome, severe, with good treatment compliance and good apnea control. On CPAP therapy, the patient has better sleep quality and is more rested overall. Patient states she stopped using her CPAP her months because of the recall. She is not losing weight and feeling well. She ruptured her Achilles tendon and was unable to exercise, so she regained her weight. She decided she needed to return to the CPAP on her snoring was becoming progressively worse again. She has been been fairly consistent in the last 6 months and is compliant with use. Patient has significant improvement of their sleep apnea and are satisfied with current CPAP therapy. Patient denies problems with oral dryness, nasal congestion, epistaxis, skin irritation or aerophagia. Patient's apnea severity and rationale for treatment to reduce apnea, improve sleep quality and reduce cardiovascular and cerebrovascular events was reviewed. I also reviewed the benefit of consistent device use of CPAP for diabetes, depression and anxiety. 2. Obesity, unspecified. Currently patients BMI is 37.7. Obesity increases the risk of apnea, CPAP pressure requirements and overall health risks especially cardiovascular and diabetes. Thus patient is advised to lose weight. Weight loss can be done with reducing portion size, reducing refined foods and balancing content with vegetables, fruit and whole grain foods. In addition, patient encouraged to get regular exercise. * Continue auto CPAP pressure at 12-17 cmH2O * Update supplies * Notify me if snoring with mask or feeling that the pressure is too much or too little * Attempt to lose weight * Call this office if any problems using CPAP * Return for follow up in 1 year, or sooner if concerns arise Counseling Topics: Spare mask, Weight loss health impact Visit Type: In Office Time Spent with Patient (minutes): 21 Provider Statement: I spent 100% of the Face to Face Visit with the patient with greater than 50% spent counseling the patient and coordination of care.
== END 2022-07-02 14:40 | disposition home or self-care (01) ==
LOC: SC 14:39
PROVIDERS: ATTEND Nurse Practitioner Family
DX: G47.33 Obstructive sleep apnea (adult) (pediatric) (principal); E66.9 Obesity, unspecified; Z68.37 Body mass index [BMI] 37.0-37.9, adult
CPT/HCPCS: 99213; G0463; 99212

== ENCOUNTER 2022-08-01 10:24 | Emergency (ER) | payer MEDICARE ==
[2022-08-01 11:00] LABS: BILIRUBIN,URINE NEGATIVE (NEGATIVE); GLUCOSE, URINE (UA) NEGATIVE (NEGATIVE); KETONES,URINE (UA) TRACE mg/dL (NEGATIVE); LEUKOCYTE ESTERASE, URINE NEGATIVE (NEGATIVE); NITRITE,URINE NEGATIVE (NEGATIVE); OCCULT BLOOD,URINE NEGATIVE (NEGATIVE); PROTEIN,URINE NEGATIVE (NEGATIVE); UROBILINOGEN,URINE 0.2 (NORMAL) E.U./dL (NORMAL)
[2022-08-01 11:02] LABS: CLARITY,URINE HAZY (CLEAR)
[2022-08-01 11:04] LABS: BASOPHILS % (AUTO) 0.5 %; EOSINOPHILS # (AUTO) 0.1 10^3/uL (0.0-0.7); EOSINOPHILS % (AUTO) 1.3 %; HCT - HEMATOCRIT 39.9 % (37.0-47.0); HGB - HEMOGLOBIN 13.5 g/dL (12.0-16.0); LYMPHOCYTES # (AUTO) 1.4 10^3/uL (1.5-3.5); LYMPHOCYTES % (AUTO) 22.2 %; MEAN CORPUSCULAR HEMOGLOBIN 32.1 pg (27.0-31.0); MEAN CORPUSCULAR HGB CONC 33.8 g/dL (32.0-36.0); MEAN CORPUSCULAR VOLUME 94.8 fL (81.0-99.0); MONOCYTES # (AUTO) 0.6 10^3/uL (0.0-1.0); MONOCYTES % (AUTO) 9.4 %; NEUTROPHILS % (AUTO) 66.4 %; PLT - PLATELET COUNT 169 10^3/uL (130-450); RED BLOOD COUNT 4.21 10^6/uL (4.20-5.40); RED CELL DISTRIBUTION WIDTH 12.3 % (12.0-15.0); WHITE BLOOD COUNT 6.1 x10^3/uL (4.8-10.8)
[2022-08-01 11:11] LABS: BACTERIA,URINE Few /HPF (None Seen); RBC,URINE 0-5 /HPF (0-5); SQUAMOUS EPITHELIAL CELL,UR FEW Squamous (<= Few)
[2022-08-01 11:16] LABS: ALBUMIN 4.1 g/dL (3.2-5.5); ALBUMIN/GLOBULIN RATIO 1.2 (1.0-2.2); BILIRUBIN,TOTAL 0.6 mg/dL (0.2-1.0); CREATININE 0.8 mg/dL (0.4-1.0); POTASSIUM 4.4 mmol/L (3.5-5.0); TOTAL PROTEIN 7.6 g/dL (6.7-8.2)
[2022-08-01] MEDS ORDERED: SODIUM CHLORIDE 0.9% 1,000 ML IV STA (12:45)
[2022-08-01] MEDS ORDERED: KETOROLAC 15 MG/ML VIAL IVP STA (12:45)
[2022-08-01] MEDS ORDERED: HYDROmorphone 0.5 MG/0.5 ML SYRINGE IVP STA (12:47)
[2022-08-01] MEDS ORDERED: iohexoL-300 100 ML VIAL ONE (13:05)
[2022-08-01] MEDS ORDERED: iohexoL-300 100 ML VIAL IVP ONE (13:38)
--- NOTE | 2022-08-01 14:16 | CT Report ---
PROCEDURE: ABDOMEN/PELVIS W INDICATIONS: right abd pain few days CONTRAST: 100ml omni 300 TECHNIQUE: After the administration of IV contrast, 5 mm thick sections acquired from the diaphragms to the symp hysis. 5 mm thick coronal and sagittal reformats were acquired. For radiation dose reduction, the f ollowing was used: automated exposure control, adjustment of mA and/or kV according to patient size. COMPARISON: Correlation is made with overlapping portions of chest CT, 06/16/2022. FINDINGS: Image quality: Excellent. ABDOMEN: Lung bases: Lung bases are clear. Heart size is normal. Solid organs: An enlarged, fatty infiltrated liver can be seen. No focal liver lesion is seen. The sp johnny demonstrates normal size and demonstrates no suspicious lesions. An accessory splenule is incid entally noted along the hilum of the primary spleen. Gallbladder has been removed. Biliary system is non dilated. Pancreas enhances normally. No adrenal nodules. Kidneys demonstrate normal size an d enhancement, without hydronephrosis. Peritoneum and bowel: A normal appendix is seen. No focal right lower quadrant inflammatory changes are seen. Bowel loops demonstrate normal wall thickness and caliber. No free fluid or air. Nodes and vessels: No retroperitoneal or mesenteric adenopathy by size criteria. Aorta and inferior vena cava are normal in size. Atherosclerotic calcification is seen. Miscellaneous: No ventral hernias. PELVIS: Genitourinary: Bladder wall thickness is normal. The uterus appears normal. There is an enlarged ri ght ovary seen measuring 3.9 cm, as on series 3 image 68. Miscellaneous: No inguinal hernias or adenopathy. Bones: No suspicious bony lesions. No vertebral body compression fractures. Focal lower lumbar spin e degenerative changes are seen. Milder degenerative changes are seen elsewhere. IMPRESSION: Normal appendix. The right ovary is enlarged for a patient of this age. When clinically appropriate, please consider p elvic ultrasound for further evaluation. Additional findings: Enlarged, fatty liver Cholecystectomy Accessory splenule Reviewed by: Matteo Mishra MD on 08/01/2022 1:14 PM [facility] Approved by: Matteo Mishra MD on 08/01/2022 1:14 PM [facility] Station ID: [id number]
[2022-08-01] MEDS ORDERED: DOCUSATE SODIUM 100 MG CAPSULE PO STA (14:42)
[2022-08-01] MEDS ORDERED: ACETAMINOPHEN 325 MG TABLET PO STA (14:43)
--- NOTE | 2022-08-01 14:46 | ED Physician Documentation ---
PD HPI ABD PAIN - Stated complaint Stated Complaint: RT SIDE PX/DIZZY - Chief complaint Chief Complaint: Abd Pain - History obtained from History obtained from: Patient - History of Present Illness Timing - onset: How many days ago (2-3) Timing - duration: Days (2-3) Timing - details: Gradual onset, Still present, Waxing and waning Pain level max: 10 Pain level now: 5 Quality: Cramping, Aching, Pain Location: RLQ (lower to mid right side. Prior cholecystectomy and she states the pain is lower than that had been.) Radiation: Right flank Improved by: Position (lying on right side). No: Eating Worsened by: Eating. No: Position, Palpation Associated symptoms: Nausea, Constipation, Loss of appetite. No: Fever, Vomiting, Diarrhea, Dysuria, Hematuria Similar symptoms before: Has not had sx before Review of Systems Constitutional: denies: Fever, Chills, Myalgias Ears: reports: Other (recurrent chronic vertigo, with prior eval by imaging, ent consult. Has not tried Meclizine consistently.) Nose: denies: Rhinorrhea / runny nose, Congestion Throat: denies: Sore throat Respiratory: denies: Cough GI: reports: Abdominal Pain, Nausea, Constipation. 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 : None HEENT: None Psych: Depression, Anxiety Musculoskeletal: None Derm: None - Past Surgical History Past Surgical History: Yes General: Cholecystectomy Ortho: Spine surgery /HVAC MAINTENANCE TECHNICIAN: section - Present Medications Home Medications: Ambulatory Orders Medication Instructions Recorded Confirmed Aspirin EC [Ecotrin] 81 mg PO DAILY 02/28/21 08/01/22 Fluoxetine HCl [Prozac] 20 mg PO DAILY 02/28/21 08/01/22 Liraglutide [Victoza 2-Jimenez] 18 mg SQ DAILY 02/28/21 08/01/22 metFORMIN [Glucophage] 500 mg PO BIDWM 02/28/21 08/01/22 Docusate Sodium 100Mg Capsule 100 mg PO DAILY #20 cap 08/01/22 [Colace 100Mg Capsule] HYDROcod/ACETAM 5/325 [[place] 5/325] 1 ea PO Q6H PRN #14 tablet 08/01/22 Meclizine [Antivert] 12.5 mg PO BID PRN #25 tablet 08/01/22 Meloxicam [Mobic] 7.5 mg PO BID 10 Days #20 tablet 08/01/22 Ondansetron Odt [Zofran] 4 mg TL Q6H PRN #10 tablet 08/01/22 - Allergies Allergies/Adverse Reactions: Allergies Allergy/AdvReac Type Severity Reaction Status Date / Time gabapentin Allergy Hallucinati Verified 08/01/22 10:36 ons glipizide Allergy Unknown Verified 08/01/22 10:36 propoxyphene [From Darvon] Allergy Unknown Verified 08/01/22 10:36 Eqlegjo-ESY-UuS Reductase Allergy Unknown Verified 08/01/22 10:36 Inhibitor [Wjcuill-Eug-Mgx Reductase Inhibitor] - Social History Does the pt smoke?: No Smoking Status: Former smoker Does the pt drink ETOH?: No Does the pt have substance abuse?: No - Immunizations Immunizations are current?: No Immunizations: Other immun not current - POLST Patient has POLST: No PD ED PE NORMAL - Vitals Vital signs reviewed: Yes - General General: Alert and oriented X 3, No acute distress, Well developed/nourished - HEENT HEENT: Pharynx benign - Neck Neck: Supple, no meningeal sign, No adenopathy - Cardiac Cardiac: RRR, No murmur - Respiratory Respiratory: Clear bilaterally - Abdomen Abdomen: Normal bowel sounds, Soft, Non distended, No organomegaly, Other (tender right abd slightly more upper than lower. Not in subcostal area per se. ) - Female Female : Deferred - Rectal Rectal: Deferred - Back Back: No CVA TTP - Derm Derm: Normal color, Warm and dry, No rash - Extremities Extremities: No edema, No calf tenderness / cord - Neuro Neuro: Alert and oriented X 3, No motor deficit, Normal speech Results - Vitals Vitals: Vital Signs - 24 hr 08/01/22 08/01/22 08/01/22 12:34 14:09 14:55 Temperature 36.7 C Heart Rate 66 62 60 Respiratory 18 16 18 Rate Blood Pressure 159/70 H 168/88 H 169/76 H O2 Saturation 100 99 98 Oxygen O2 Source Room air - Labs Labs: Laboratory Tests 08/01/22 08/01/22 08/01/22 10:50 10:57 10:57 WBC 6.1 RBC 4.21 Hgb 13.5 Hct 39.9 MCV 94.8 MCH 32.1 H MCHC 33.8 RDW 12.3 Plt Count 169 MPV 10.0 Neut # (Auto) 4.0 Lymph # (Auto) 1.4 L [place] # (Auto) 0.6 Eos # (Auto) 0.1 Baso # (Auto) 0.0 Absolute Nucleated RBC 0.00 Nucleated RBC % 0.0 Sodium 135 Potassium 4.4 Chloride 97 L Carbon Dioxide 27 Anion Gap 11.0 BUN 23 H Creatinine 0.8 Estimated GFR (MDRD) 72 L Glucose 324 H Calcium 10.0 Total Bilirubin 0.6 AST 52 H ALT 54 Alkaline Phosphatase 71 Total Protein 7.6 Albumin 4.1 Globulin 3.5 Albumin/Globulin Ratio 1.2 Lipase 35 Urine Color DARK YELLOW Urine Clarity HAZY Urine pH 6.0 Ur Specific [place] >=1.030 H Urine Protein NEGATIVE Urine Glucose (UA) NEGATIVE Urine Ketones TRACE Urine Occult Blood NEGATIVE Urine Nitrite NEGATIVE Urine Bilirubin NEGATIVE Urine Urobilinogen 0.2 (NORMAL) Ur Leukocyte Esterase NEGATIVE Urine RBC 0-5 Urine WBC 6-10 H Ur Squamous Epith Cells FEW Squamous Urine Bacteria Few Ur Microscopic Review INDICATED Urine Culture Comments NOT INDICATED - Rads (name of study) abd/pelvis CT Radiology: Prelim report reviewed (normal appendix. fatty liver. No focal inflammatory process. Normal kidney. enlarged right ovary 3.9 cm. no free fluid. ), See rad report PD MEDICAL DECISION MAKING - ED course Complexity details: reviewed results (no obvious cause for the pain. consider then IBS, IBD, constipation, adhesions, myofascial as other possibilities. Common treatment in these would be NSAIDs and stool softener. ), considered differential, d/w patient Departure - Departure Disposition: 01 Home, Self Care Clinical Impression: Right sided abdominal pain, Chronic vertigo Ovarian cyst Qualifiers: Laterality: right Qualified Code(s): N83.201 - Unspecified ovarian cyst, right side Condition: Stable Record reviewed to determine appropriate education?: Yes Instructions: ED Abdominal Pain Female Non-Specific Abdominal Pain Follow-Up: Rekha Fonseca PA-C [Primary Care Provider] - Prescriptions: Meclizine [Antivert] 12.5 mg PO BID PRN #25 tablet PRN Reason: Vertigo Docusate Sodium 100Mg Capsule [Colace 100Mg Capsule] 100 mg PO DAILY #20 cap Meloxicam [Mobic] 7.5 mg PO BID 10 Days #20 tablet HYDROcod/ACETAM 5/325 [[place] 5/325] 1 ea PO Q6H PRN #14 tablet PRN Reason: Pain Ondansetron Odt [Zofran] 4 mg TL Q6H PRN #10 tablet PRN Reason: Nausea / Vomiting Comments: Your blood count in chemistry blood tests as well as urine test and CT scan did not show any obvious cause of the symptoms. That excludes things like appendicitis, diverticulitis, kidney stones, kidney infection, local colitis, mass/tumors. Other considerations would be inflammatory conditions of the intestine such as inflammatory bowel or irritable bowel disease. Intermittent constipation or scar tissue adhesion inflammation can cause this as well. Stay well-hydrated. I would suggest a stool softener docusate twice daily for the next several days and then once daily for the next couple of weeks. Anti-inflammatory. We can try meloxicam which only needs to be twice daily. Take it with food over the next 7 to 10 days. Add Tylenol every 4-6 hours as needed for pain. Add ondansetron if needed for worse nausea or hydrocodone/acetaminophen if needed for worse pain. Follow-up with your primary care regarding the above symptoms and see how you improve with the above medications. Regarding your positional dizziness/vertigo, you could try meclizine twice daily as needed to see if that helps with the symptoms. Your CT scan did show small ovarian cyst measuring 3 cm which is just over an inch in size. No signs of inflammation of it nor bleeding/leakage. This should be followed up with your primary care as well though I do not see this being a cause of your symptoms. I sent your prescriptions to [facility] pharmacy in [place]. I am prescribing a short course of narcotic pain medication for you. These are potentially dangerous and addictive medications that should be used carefully. These medications may constipate you. Take an enku-aqb-gqizuyy stool softener such as docusate twice daily with plenty of water while taking these medications. If you go 24 hours without a bowel movement, take pier-vdp-ohgzpum MiraLAX, per package instructions. Do not drink or drive while taking these medications. If you received narcotic or sedating medications while in the emergency department do not drive for 24 hours. Store this medication in a safe, secure place and out of reach of children. It is a violation of federal law to give or sell this medication to another person or to use in a manner other than prescribed. The ED will not refill narcotic prescriptions, including prescriptions lost or stolen. You can dispose of unwanted medications at the [facility]'s office or at several pharmacies such as [facility]. Discharge Date/Time: 08/01/22 15:20
[2022-08-01 14:56] VITALS: BP 169/76
== END 2022-08-01 15:20 | disposition home or self-care (01) ==
LOC: ED 10:24
DX: N83.201 Unspecified ovarian cyst, right side (principal); R42 Dizziness and giddiness; Z87.891 Personal history of nicotine dependence
CPT/HCPCS: 36415; 74177; 80053; 81001; 83690; 85025; 96374; 96375; 99284; A9270; J1170; Q9967; 81003; 87086

== ENCOUNTER 2022-08-14 07:07 | Outpatient (CLI) | payer MEDICARE ==
--- NOTE | 2022-08-14 10:55 | Ultrasound Report ---
PROCEDURE: Pelvic w/Transvaginal INDICATIONS: OVARIAN CYST TECHNIQUE: Real-time scanning was performed of the pelvic organs, with image documentation. Additional endovagi nal scanning was necessary due to incomplete visualization of the adnexal and endometrial structures by transabdominal scanning. COMPARISON: None. FINDINGS: Uterus: Uterus is anteverted and normal in size at 6.4 x 4.4 x 3.0 cm. The myometrium is homogeneou s. The endometrium measures 3.3 mm in combined thickness. There is minimal fluid in the endometrial canal with suggestion of small endometrial polyp, measuring 0.8 x 0.7 x 0.3 cm. Additionally, there is a right posterior intramural fibroid measuring 1.6 x 1.7 x 1.8 cm Ovaries: The right ovary measures 3.9 x 2.9 x 2.5 cm, with a calculated ovarian volume of 14.9 cc. The left ovary measures 2.5 x 1.2 x 1.4 cm, with a calculated ovarian volume of 2.1 cc. The ovaries have a normal sonographic appearance. Less than 12 follicles can be seen in each ovary. No adnexal masses are seen. Other: No pathologic free abdominal or pelvic fluid. IMPRESSION: 1. Possible 8 x 3 mm endometrial polyp could be confirmed by saline infusion hysterosonography 2. Small intramural fibroid Reviewed by: Matthew Mueller MD on 08/14/2022 9:53 AM [facility]UST Approved by: Matthew Mueller MD on 08/14/2022 9:53 AM RUST Station ID: [id number]
== END 2022-08-14 07:08 | disposition home or self-care (01) ==
LOC: DI 07:07
PROVIDERS: ATTEND Family Medicine
DX: D25.1 Intramural leiomyoma of uterus (principal)

== ENCOUNTER 2022-09-28 08:18 | Outpatient (CLI) | payer MEDICARE ==
[2022-09-28 13:22] LABS: CALCIUM 9.2 mg/dL (8.5-10.3); CREATININE 0.9 mg/dL (0.4-1.0); POTASSIUM 4.6 mmol/L (3.5-5.0)
[2022-09-28 13:50] LABS: ESTIMATED AVERAGE GLUCOSE 157 mg/dL (70-100); HEMOGLOBIN A1c% 7.1 % (4.27-6.07)
== END 2022-09-28 08:19 | disposition home or self-care (01) ==
LOC: LAB.N 08:18
PROVIDERS: ATTEND Physician Assistant Medical
DX: E11.9 Type 2 diabetes mellitus without complications (principal)
CPT/HCPCS: 36415; 80048; 83036

== ENCOUNTER 2022-12-23 09:55 | Emergency (ER) | payer MEDICARE ==
--- NOTE | 2022-12-23 10:13 | ED Physician Documentation ---
PD HPI BACK PAIN - Stated complaint Stated Complaint: BACK PX DOWN TO LEGS - Chief complaint Chief Complaint: Back Pain - History obtained from History obtained from: Patient - History of Present Illness Timing - onset: How many weeks ago (2) Timing - duration: Weeks (2) Timing - details: Abrupt onset (onset with mowing lawn. Usually riding mower, but it was broken, so push mower. It did have up and down small hill and she felt that she was lurching/hunching as she changed directions. Onset of pain during the mowing and has persisted with movement since. Pain down both back thighs. 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 : None HEENT: None Psych: Depression, Anxiety Musculoskeletal: None Derm: None - Past Surgical History Past Surgical History: Yes General: Cholecystectomy Ortho: Spine surgery /BOARDING SPECIALIST: section - Present Medications Home Medications: Ambulatory Orders Medication Instructions Recorded Confirmed Aspirin EC [Ecotrin] 81 mg PO DAILY 02/28/21 12/23/22 Fluoxetine HCl [Prozac] 20 mg PO DAILY 02/28/21 12/23/22 Liraglutide [Victoza 2-Jimenez] 18 mg SQ DAILY 02/28/21 12/23/22 metFORMIN [Glucophage] 500 mg PO BIDWM 02/28/21 12/23/22 Docusate Sodium 100Mg Capsule 100 mg PO DAILY #20 cap 08/01/22 12/23/22 [Colace 100Mg Capsule] HYDROcod/ACETAM 5/325 [[place] 5/325] 1 ea PO Q6H PRN #14 tablet 08/01/22 12/23/22 Meclizine [Antivert] 12.5 mg PO BID PRN #25 tablet 12/03/22 04/26/23 Meloxicam [Mobic] 7.5 mg PO BID 10 Days #20 tablet 08/01/22 12/23/22 Ondansetron Odt [Zofran] 4 mg TL Q6H PRN #10 tablet 08/01/22 12/23/22 Cyclobenzaprine [Flexeril] 10 mg PO TID PRN #30 tablet 12/23/22 Meloxicam [Mobic] 7.5 mg PO BID 10 Days #20 tablet 12/23/22 oxyCODONE [Roxicodone] 2.5 - 5 mg PO Q6H PRN #15 tablet 12/23/22 - Allergies Allergies/Adverse Reactions: Allergies Allergy/AdvReac Type Severity Reaction Status Date / Time gabapentin Allergy Hallucinati Verified 12/23/22 10:06 ons glipizide Allergy Unknown Verified 12/23/22 10:06 propoxyphene [From Darvon] Allergy Unknown Verified 12/23/22 10:06 Fxzmvsd-UEW-JzC Reductase Allergy Unknown Verified 12/23/22 10:06 Inhibitor [Hgypijm-Ngv-Fgj Reductase Inhibitor] - Social History Does the pt smoke?: No Smoking Status: Former smoker Does the pt drink ETOH?: No Does the pt have substance abuse?: No - Immunizations Immunizations are current?: No Immunizations: Other immun not current - POLST Patient has POLST: No PD ED PE NORMAL - Vitals Vital signs reviewed: Yes - General General: Alert and oriented X 3, Well developed/nourished, Other (appears in pain with guarded ROM of the low back. ) - Abdomen Abdomen: Soft, Non tender - Back Back: No CVA TTP, Other (tender in mid to lower lumbar area and particularly lateral muscles at that level. No rash nor sores. ) - Derm Derm: Normal color, Warm and dry - Neuro Neuro: Alert and oriented X 3, No motor deficit, No sensory deficit Results - Vitals Vitals: Vital Signs - 24 hr 12/23/22 12/23/22 10:03 12:42 Temperature 36.2 C L Heart Rate 72 64 Respiratory 16 20 Rate Blood Pressure 142/56 H 170/76 H O2 Saturation 97 98 Oxygen O2 Source Room air - Rads (name of study) lumbar CT Relevant Findings:: Prelim report reviewed (diffuse DDD. sacralization of L5 (Ed: non clinically significant), moderate canal stenosis L4/L5 level. no fractures nor lytic bone lesions. ), See rad report PD Medical Decision Making - ED course Complexity details: reviewed results (lumbar CT - diffuse DDD. Particularly prominent L4/L5 level with moderate canal stenosis. No fractures. ), re- evaluated patient (she is reasonably improved in pain/tightness after IM and PO meds here. ), considered differential (has new onset low back pain with some sciatic radiation after mowing lawn, stating some up and down hill mowing and she felt she was lurching forward and back with the mower. Concern for structural such as compression fractures. I feel CT imaging is appropriate. Not considerable neuro symptoms.), d/w patient Drug Therapy Requiring Monitoring for Toxicity: GivenIM toradol and Dilaudid with reasonable improvement and no impairment in alertness. Departure - Departure Disposition: 01 Home, Self Care Clinical Impression: Sciatica Qualifiers: Laterality: bilateral Qualified Code(s): M54.31 - Sciatica, right side Back pain Qualifiers: Back pain location: low back pain Chronicity: acute Back pain laterality: bilateral Sciatica presence: with sciatica Sciatica laterality: bilateral sciatica Qualified Code(s): M54.42 - Lumbago with sciatica, left side Condition: Stable Record reviewed to determine appropriate education?: Yes Instructions: ED Sciatica Follow-Up: CATALINA MARTINEZ [Primary Care Provider] - Prescriptions: Cyclobenzaprine [Flexeril] 10 mg PO TID PRN #30 tablet PRN Reason: Spasms Meloxicam [Mobic] 7.5 mg PO BID 10 Days #20 tablet oxyCODONE [Roxicodone] 2.5 - 5 mg PO Q6H PRN #15 tablet PRN Reason: Pain Comments: Your CT scan shows expected degenerative disc disease and some arthritis. There is some protrusion of the disc moderately at the L4-5 level causing some tightness of the nerve areas. This likely is contributing to the pain you have burning down both legs (sciatic). The CT is does not show severe blockage of the nerve roots. The imaging is similar to abdominal CT scan you had in July. At this point I would presume some inflammation around the spine and also some muscle spasms. We will treat this with some anti-inflammatories as well as muscle relaxant and stepwise pain medicine. Its good to continue with stretching, heat, massage and chiropractic. Take meloxicam anti-inflammatory twice daily with food for the next 7 to 10 days. Flexeril muscle relaxant 3 times daily if needed for spasms. Add Tylenol 650 mg 4 times daily for pain. Consider taking it regularly for the first several days to a week. To that add half to 1 tablet oxycodone every 6 hours if needed for worse pain. I would anticipate improvement over the next several days and it may take a week or 2 to really be back to baseline. Follow-up with your primary care if not improving well. I sent your prescriptions to [facility] pharmacy. I am prescribing a short course of narcotic pain medication for you. These are potentially dangerous and addictive medications that should be used carefully. These medications may constipate you. Take an lbaj-zdc-whxnqms stool softener such as docusate twice daily with plenty of water while taking these medications. If you go 24 hours without a bowel movement, take kqrk-fmi-amrmtga MiraLAX, per package instructions. Do not drink or drive while taking these medications. If you received narcotic or sedating medications while in the emergency department do not drive for 24 hours. Store this medication in a safe, secure place and out of reach of children. It is a violation of federal law to give or sell this medication to another person or to use in a manner other than prescribed. The ED will not refill narcotic prescriptions, including prescriptions lost or stolen. You can dispose of unwanted medications at the [facility]'s office or at several pharmacies such as [facility]. Discharge Date/Time: 12/23/22 12:44
[2022-12-23] MEDS ORDERED: KETOROLAC 30 MG/ML VIAL IM STA (10:38)
[2022-12-23] MEDS ORDERED: ACETAMINOPHEN 325 MG TABLET PO STA (10:40)
[2022-12-23] MEDS ORDERED: HYDROmorphone 1 MG/ML CARPUJECT IM STA (10:40)
[2022-12-23] MEDS ORDERED: CYCLOBENZAPRINE 10 MG TABLET PO STA (10:40)
--- NOTE | 2022-12-23 12:10 | CT Report ---
PROCEDURE: LUMBAR SPINE WO INDICATIONS: acute low back pain after mowing/motion TECHNIQUE: Noncontrast 3 mm thick sections acquired from the T12 level to the sacrum. Sagittal and coronal refo rmats were constructed. For radiation dose reduction, the following was used: automated exposure co ntrol, adjustment of mA and/or kV according to patient size. COMPARISON: None. FINDINGS: Image quality: Excellent. Bones: Transitional anatomy with sacralization of L5. There is trace anterolisthesis of L5 on S1. No acute vertebral body compression fractures. No suspi cious lytic or blastic bony lesions. Multilevel degenerative disc disease, moderate at L2-L3, L3-L4 and L4-L5 with disc space narrowing an d posterior disc bulge. Multilevel facet arthropathy bilaterally, severe at L4-L5, moderate at L3-L4 and L5-S1. Vkfjuyxu-xh-fnwywy central canal stenosis at L4-L5, and hyfm-vf-kzibtvnb central canal stenosis at L2 -L3 and L3-L4. No pars defects. Soft tissues: No retroperitoneal masses or hematomas. Visualized aorta is normal in caliber. Moder ate vascular calcifications. IMPRESSION: 1. Transitional anatomy with sacralization of L5. 2. Multilevel degenerative disc and facet disease in lumbar spine as described. 3. Moderate to severe central canal stenosis at L4-L5. Reviewed by: Richard Tovar MD on 12/23/2022 12:09 PM PDT Approved by: Richard Tovar MD on 12/23/2022 12:09 PM PDT Station ID: [id number]
[2022-12-23 12:44] VITALS: BP 170/76
== END 2022-12-23 12:44 | disposition home or self-care (01) ==
LOC: ED 09:55
DX: M54.42 Lumbago with sciatica, left side (principal); M54.41 Lumbago with sciatica, right side; Z87.891 Personal history of nicotine dependence; I10 Essential (primary) hypertension; E11.9 Type 2 diabetes mellitus without complications; Z79.82 Long term (current) use of aspirin; Z79.899 Other long term (current) drug therapy; Z79.84 Long term (current) use of oral hypoglycemic drugs
CPT/HCPCS: 72131; 96372; 99283; 99284; A9270; J1170

== ENCOUNTER 2023-02-05 11:36 | Outpatient (CLI) | payer MEDICARE ==
[2023-02-05 17:51] LABS: ALBUMIN 4.1 g/dL (3.2-5.5); ALBUMIN/GLOBULIN RATIO 1.1 (1.0-2.2); ALKALINE PHOSPHATASE 71 IU/L (42-121); ALT ALANINE AMINOTRANSFERASE 46 IU/L (10-60); AST ASPARTATE AMINOTRANSFERASE 48 IU/L (10-42); BILIRUBIN,TOTAL 0.7 mg/dL (0.2-1.0); BUN - BLOOD UREA NITROGEN 25 mg/dL (6-20); CALCIUM 9.2 mg/dL (8.5-10.3); CARBON DIOXIDE - CO2 28 mmol/L (21-32); CHLORIDE 98 mmol/L (101-111); CHOL/HDL RATIO 3.7 (<4.4); CHOLESTEROL 209 mg/dL; CREATININE 0.8 mg/dL (0.4-1.0); GFR - MDRD 72 (>89); GLUCOSE 241 mg/dL (70-100); HDL CHOLESTEROL 57 mg/dL; LDL CHOLESTEROL,CALCULATED 127 mg/dL; LDL/HDL RATIO 2.2 (<4.4); POTASSIUM 5.5 mmol/L (3.5-5.0); SODIUM 134 mmol/L (135-145); TOTAL PROTEIN 7.7 g/dL (6.7-8.2); TRIGLYCERIDES 127 mg/dL; VLDL CHOLESTEROL 25 mg/dL
[2023-02-05 17:57] LABS: ESTIMATED AVERAGE GLUCOSE 171 mg/dL (70-100); HEMOGLOBIN A1c% 7.6 % (4.27-6.07)
== END 2023-02-05 11:37 | disposition home or self-care (01) ==
LOC: LAB.N 11:36
PROVIDERS: ATTEND Physician Assistant Medical
DX: E11.9 Type 2 diabetes mellitus without complications (principal)
CPT/HCPCS: 36415; 80053; 80061; 83036; 83721

== ENCOUNTER 2023-02-09 10:15 | Outpatient (CLI) | payer MEDICARE ==
[2023-02-09 12:13] LABS: CALCIUM 9.6 mg/dL (8.5-10.3); CREATININE 0.9 mg/dL (0.4-1.0); POTASSIUM 4.7 mmol/L (3.5-5.0)
== END 2023-02-09 10:16 | disposition home or self-care (01) ==
LOC: LAB.N 10:15
PROVIDERS: ATTEND Physician Assistant Medical
DX: E87.5 Hyperkalemia (principal)
CPT/HCPCS: 36415; 80048

== ENCOUNTER 2023-05-07 10:19 | Outpatient (CLI) | payer MEDICARE ==
[2023-05-07 13:25] LABS: ESTIMATED AVERAGE GLUCOSE 163 mg/dL (70-100); HEMOGLOBIN A1c% 7.3 % (4.27-6.07)
[2023-05-07 13:32] LABS: ALBUMIN 4.5 g/dL (3.2-5.5); ALBUMIN/GLOBULIN RATIO 1.6 (1.0-2.2); ALKALINE PHOSPHATASE 71 IU/L (42-121); ALT ALANINE AMINOTRANSFERASE 34 IU/L (10-60); AST ASPARTATE AMINOTRANSFERASE 31 IU/L (10-42); BILIRUBIN,TOTAL 0.9 mg/dL (0.2-1.0); BUN - BLOOD UREA NITROGEN 17 mg/dL (6-20); CALCIUM 10.6 mg/dL (8.5-10.3); CARBON DIOXIDE - CO2 29 mmol/L (21-32); CHLORIDE 101 mmol/L (101-111); CHOL/HDL RATIO 3.9 (<4.4); CHOLESTEROL 196 mg/dL; CREATININE 0.7 mg/dL (0.6-1.3); GFR - MDRD 83 (>89); GLUCOSE 162 mg/dL (74-104); HDL CHOLESTEROL 50 mg/dL; LDL CHOLESTEROL,CALCULATED 110 mg/dL; LDL/HDL RATIO 2.2 (<4.4); POTASSIUM 4.5 mmol/L (3.5-4.5); SODIUM 137 mmol/L (135-145); TOTAL PROTEIN 7.3 g/dL (6.4-8.9); TRIGLYCERIDES 181 mg/dL (48-352); VLDL CHOLESTEROL 36 mg/dL
== END 2023-05-07 10:20 | disposition home or self-care (01) ==
LOC: LAB.N 10:19
PROVIDERS: ATTEND Physician Assistant Medical
DX: E11.9 Type 2 diabetes mellitus without complications (principal)
CPT/HCPCS: 36415; 80053; 80061; 83036; 83721

== ENCOUNTER 2023-07-07 08:00 | Outpatient (CLI) | payer MEDICARE | END 2023-07-07 23:59 | disposition home or self-care (01) | LOC: LAB.N 08:00 | PROVIDERS: ATTEND Physician Assistant Medical | DX: R10.30 Lower abdominal pain, unspecified (principal) | CPT/HCPCS: 87086 ==

== ENCOUNTER 2023-07-14 11:43 | Outpatient (CLI) | payer MEDICARE ==
[2023-07-14] MEDS: ALBUTEROL 1 PUFF INH STA (13:41)
== END 2023-07-14 11:44 | disposition home or self-care (01) ==
LOC: RT 11:43
PROVIDERS: ATTEND Nurse Practitioner
DX: R06.02 Shortness of breath (principal)
CPT/HCPCS: 94060; 94729

== ENCOUNTER 2023-08-16 08:54 | Outpatient (CLI) | payer MEDICARE ==
[2023-08-16 13:00] LABS: ESTIMATED AVERAGE GLUCOSE 206 mg/dL (70-100); HEMOGLOBIN A1c% 8.8 % (4.27-6.07)
[2023-08-16 13:46] LABS: BUN - BLOOD UREA NITROGEN 20 mg/dL (6-20); CALCIUM 10.1 mg/dL (8.5-10.3); CARBON DIOXIDE - CO2 26 mmol/L (21-32); CHLORIDE 100 mmol/L (101-111); CHOL/HDL RATIO 4.9 (<4.4); CHOLESTEROL 214 mg/dL; CREATININE 0.8 mg/dL (0.6-1.3); GFR - MDRD 72 (>89); GLUCOSE 236 mg/dL (74-104); HDL CHOLESTEROL 44 mg/dL; LDL CHOLESTEROL,CALCULATED 130 mg/dL; POTASSIUM 4.5 mmol/L (3.5-4.5); SODIUM 134 mmol/L (135-145); TRIGLYCERIDES 200 mg/dL (48-352); VLDL CHOLESTEROL 40 mg/dL
== END 2023-08-16 08:55 | disposition home or self-care (01) ==
LOC: LAB.N 08:54
PROVIDERS: ATTEND Physician Assistant Medical
DX: E78.5 Hyperlipidemia, unspecified (principal); E11.9 Type 2 diabetes mellitus without complications
CPT/HCPCS: 36415; 80048; 80061; 83036; 83721

== ENCOUNTER 2023-11-12 09:55 | Outpatient (CLI) | payer MEDICARE ==
[2023-11-12 13:24] LABS: ALBUMIN 4.4 g/dL (3.2-5.5); ALBUMIN/GLOBULIN RATIO 1.6 (1.0-2.2); ALKALINE PHOSPHATASE 49 IU/L (42-121); ALT ALANINE AMINOTRANSFERASE 20 IU/L (10-60); AST ASPARTATE AMINOTRANSFERASE 20 IU/L (10-42); BILIRUBIN,TOTAL 0.4 mg/dL (0.2-1.0); BUN - BLOOD UREA NITROGEN 29 mg/dL (6-20); CARBON DIOXIDE - CO2 27 mmol/L (21-32); CHLORIDE 104 mmol/L (101-111); CHOL/HDL RATIO 4.3 (<4.4); CHOLESTEROL 202 mg/dL; CREATININE 0.7 mg/dL (0.6-1.3); GFR - MDRD 83 (>89); GLUCOSE 123 mg/dL (74-104); HDL CHOLESTEROL 47 mg/dL; LDL CHOLESTEROL,CALCULATED 105 mg/dL; LDL/HDL RATIO 2.2 (<4.4); POTASSIUM 4.5 mmol/L (3.5-4.5); SODIUM 137 mmol/L (135-145); TOTAL PROTEIN 7.1 g/dL (6.4-8.9); TRIGLYCERIDES 250 mg/dL (48-352); VLDL CHOLESTEROL 50 mg/dL
[2023-11-12 14:54] LABS: ESTIMATED AVERAGE GLUCOSE 131 mg/dL (70-100); HEMOGLOBIN A1c% 6.2 % (4.27-6.07)
== END 2023-11-12 09:56 | disposition home or self-care (01) ==
LOC: LAB.N 09:55
PROVIDERS: ATTEND Physician Assistant Medical
DX: E11.9 Type 2 diabetes mellitus without complications (principal); R10.30 Lower abdominal pain, unspecified
CPT/HCPCS: 36415; 80053; 80061; 83036; 83721; 87086

== ENCOUNTER 2024-02-11 09:05 | Outpatient (CLI) | payer MEDICARE ==
[2024-02-11 13:47] LABS: ESTIMATED AVERAGE GLUCOSE 103 mg/dL (70-100); HEMOGLOBIN A1c% 5.2 % (4.27-6.07)
[2024-02-11 14:04] LABS: CALCIUM 9.6 mg/dL (8.5-10.3); CREATININE 0.9 mg/dL (0.6-1.3); POTASSIUM 4.7 mmol/L (3.5-4.5)
== END 2024-02-11 09:06 | disposition home or self-care (01) ==
LOC: LAB.N 09:05
PROVIDERS: ATTEND Physician Assistant Medical
DX: E11.9 Type 2 diabetes mellitus without complications (principal)
CPT/HCPCS: 36415; 80048; 83036

== ENCOUNTER 2024-03-23 09:11 | Outpatient (CLI) | payer MEDICARE ==
--- NOTE | 2024-03-24 09:25 | Mammography Report ---
BILATERAL DIGITAL SCREENING MAMMOGRAM 3D/2D: 03/23/2024 CLINICAL: Routine screening. Family history of breast cancer. Comparison is made to exams dated: 06/22/2022 mammogram and 02/10/2021 mammogram - [facility]. There are scattered areas of fibroglandular density in both breasts (category b / 25%-50% glandular t issue). No significant masses, calcifications, or other findings are seen in either breast. There has been no significant interval change. IMPRESSION: NEGATIVE There is no mammographic evidence of malignancy. A 1 year screening mammogram is recommended. Based on the Tyrer Cuzick model (a risk assessment model) the patient's lifetime risk is 7.1% and her 10 year risk is 4.0%. According to the ACR, ACS, and NCCN guidelines, an annual breast MRI exam alannah g with mammogram is recommended if the patient's lifetime risk is 20% or greater. This exam was interpreted at Station ID: [id number]. NOTE: For mammograms, a report in lay terms will be sent to the patient. Approximately 15% of breast malignancies will not be visualized mammographically. In the management of a palpable breast mass, a negative mammogram must not discourage biopsy of a clinically suspicious lesion. Electronically Signed By: Mikaela Bianchi M.D., Ph.D. /molly:03/24/2024 08:40:42 letter sent: No_Letter ACR BI-RADS Category 1: Negative 3341F PARENCHYMAL PATTERN: (A) - The breast(s) demonstrate(s) scattered fibroglandular densities. BI-RADS CATEGORY: (1) - 1 RECOMMENDATION: (ANNUAL) - Recommend routine annual screening mammography. [id number] 1 year screening LATERALITY: (B)
== END 2024-03-23 09:12 | disposition home or self-care (01) ==
LOC: DI.N 09:11
DX: Z12.31 Encounter for screening mammogram for malignant neoplasm of breast (principal); Z80.3 Family history of malignant neoplasm of breast; R92.323 Mammographic fibroglandular density, bilateral breasts

== ENCOUNTER 2024-04-06 08:12 | Outpatient (CLI) | payer MEDICARE ==
--- NOTE | 2024-04-06 08:44 | Sleep Patient Instructions ---
Sleep Center Visit Summary - Patient Visit Information Reason for Visit: Annual follow-up - Patient Instructions Additional Instructions: You will continue with CPAP therapy with pressure set at 12-17 cmH2O. A supply prescription will be updated with your DME supplier. We encourage you to continue to try to lose weight. Please follow up with the sleep care office in 1 year. - Clinic Information Contact: [facility] [address] [place] [address] [email or web address] T: [phone]
--- NOTE | 2024-04-06 08:49 | SLEEP CARE CONSULTATION ---
Information from patient questionnaire entered by Melody Silva. I have reviewed and concur with the information entered by Melody Silva. This document represents the service I personally performed and the decisions made by me, Marixa Srivastava ARNP. History of Present Illness Service Date and Time: 04/06/2024811 Previous diagnosis: Severe, Obstructive Sleep Apnea-Hypopnea Syndrome AHI: 44.0 (in 2018) Reason for follow up: annual (LAST SEEN 06/2022) Equipment type: CPAP ([employer], checked online, not needing to be replaced; s/u 02/13/2019) Equipment obtained from: [facility] (getting supplies as needed) Mask style: Nasal Backup mask available: Yes Last cushion change: 1 week [facility] additional information: JOSE MANUEL VASQUEZ was diagnosed to have severe, AHI 44, obstructive sleep apnea- hypopnea syndrome and returned today for CPAP therapy annual follow-up. Sleep Study - Results Prior [facility]: Yes [facility] - Data Reviewed with Patient Average duration of nightly device use: 7 HRS 57 MINS 5 SECS Compliance rate %: 85.5 (04/07/23-04/05/24; 320/365 days used) Current pressure setting (cmH2O): 12-17 Average residual AHI: 3.5 Central apnea: 0.4 Obstructive apnea: 1.2 Hypopnea: 1.9 Average large leak: 10 mins 31 secs Subjective Missed days of use due to: reports: other (stopped using for a while, numbers low) Patient concerns: denies: aerophagia, mask discomfort, air blowing in eyes, mask leak noise, condensation in mask/hose, nasal congestion, dry mouth, nose, throat, epistaxis Observed to snore while using device: No Current pressure setting perceived as: comfortable On therapy, patient: reports: sleeping better, awakening more refreshed, being more awake and alert during the day, more rested overall. denies: drowsiness while driving Initial Bryan Sleepiness Scale score: 18 (in 2019) Current Bryan Sleepiness Scale score: 4 (04/06/24) Allergies and Home Medications Known drug allergies: Yes (as listed) Drug allergies reviewed: Yes Home medication list reviewed: Yes (Mounjaro 7.5 mg) Allergy and home medication list: Allergies gabapentin Allergy (Verified 04/06/24 08:18) Hallucinations glipizide Allergy (Verified 04/06/24 08:18) Unknown propoxyphene [From Darvon] Allergy (Verified 04/06/24 08:18) Unknown [id number]-[id number]-KpF Reductase Inhibitor [Vtzbnsq-Etb-Euc Reductase Inhibitor] Allergy (Verified 04/06/24 08:18) Unknown Review of Systems Review of systems same as previous: Yes (NO CHANGE) Physical Exam Vital signs obtained and entered by: MELODY Jeronimo MA Blood Pressure: 136/66 (RIGHT) Cuff size: regular Heart Rate: 77 O2 Saturation: 97 Height: 4 ft 11 in Weight: 168 lb 3.2 oz Weight change since last visit: 18 lb loss Body Mass Index: 34.0 BMI Classification: Obese Impression and Plan 1. Obstructive Sleep Apnea-Hypopnea Syndrome, severe, with good treatment compliance and good apnea control. On CPAP therapy, the patient has better sleep quality and is more rested overall. She has significant improvement of her sleep apnea and is satisfied with current PAP therapy. She has not concerns or issues with her CPAP use or mask. Patient's apnea severity and rationale for treatment to reduce apnea, improve sleep quality and reduce cardiovascular and cerebrovascular events was reviewed. I also reviewed the benefit of consistent device use of CPAP for diabetes, depression/anxiety. 2. Obesity, unspecified. Currently patients BMI is 34. She has lost weight. Obesity increases the risk of apnea, CPAP pressure requirements and overall health risks especially cardiovascular and diabetes. Thus patient is advised to continue to try to lose weight. * Continue auto CPAP pressure at 12-17 cmH2O * Update supply prescription. * Notify me if snoring with mask or feeling that the pressure is too much or too little * Attempt to lose weight * Call this office if any problems using CPAP * Return for follow up in 12 months, or sooner if concerns arise Continue with device pressure at (cmH2O): 12-17 Counseling Topics: Spare mask, Weight loss health impact Prescriptions: Device supplies Follow up with Sleep Care in: 1 year Visit Type: In Office Time Spent with Patient (minutes): 21 Provider Statement: I spent 100% of the Face to Face Visit with the patient with greater than 50% spent counseling the patient and coordination of care.
[2024-04-06 09:07] VITALS: BP 136/66; O2SAT 97
== END 2024-04-06 08:13 | disposition home or self-care (01) ==
LOC: SC 08:12
PROVIDERS: ATTEND Nurse Practitioner Family
DX: G47.33 Obstructive sleep apnea (adult) (pediatric) (principal); E66.9 Obesity, unspecified; Z68.34 Body mass index [BMI] 34.0-34.9, adult
CPT/HCPCS: 99213; G0463; 99212

== ENCOUNTER 2024-04-06 09:37 | Outpatient (CLI) | payer MEDICARE ==
--- NOTE | 2024-04-06 16:41 | XRAY Report ---
PROCEDURE: Wrist 3+V LT INDICATIONS: WRIST PAIN, LEFT TECHNIQUE: 4 views of the wrist were acquired. COMPARISON: None. FINDINGS: Bones: No fractures or dislocations. No suspicious bony lesions. Soft tissues: No suspicious soft tissue calcifications or masses. IMPRESSION: No acute bony abnormality. Reviewed by: Dorita Armenta MD on 04/06/2024 4:40 PM PDT Approved by: Dorita Armenta MD on 04/06/2024 4:40 PM PDT Station ID: [id number]
== END 2024-04-06 23:59 | disposition home or self-care (01) ==
LOC: DI.N 09:37
PROVIDERS: ATTEND Family Medicine
DX: M25.532 Pain in left wrist (principal)